=== PATIENT | female | born 1985 | race Caucasian/White ===

== ENCOUNTER 2016-07-30 21:24 | Inpatient (IN) | payer OTHER, MEDICAID ==
[2016-07-30] MEDS ORDERED: OXYTOCIN/NORMAL SALINE 1,000 ML IV PRN (21:43)
[2016-07-30] MEDS ORDERED: ACETAMINOPHEN 325 MG TABLET PO PRN (21:44)
[2016-07-30] MEDS ORDERED: MAG HYDROX/AL HYDROX/SIMETH SUSP 30 ML UDCUP PO PRN (21:44)
[2016-07-30] MEDS ORDERED: RINGERS SOLUTION,LACTATED 300 ML IV ONE (21:45)
--- NOTE | 2016-07-30 22:00 | L&D Flow Sheet ---
LD Flowsheet Datetime Report Generated by CPN: 07/30/2016 22:00 Datetime: 07/30/2016 21:50 Vital Signs NBP Sys/Flor/Mean (mmHg): 134 (QS system process) : 78 (QS system process) : 100 (QS system process) Pulse: 82 (QS system process)
[2016-07-30] MEDS ORDERED: OXYTOCIN/NORMAL SALINE 0 UNIT/0 ML RTUINJ ONE (22:11)
[2016-07-30] MEDS ORDERED: LIDOCAINE 1% INJ-PF (10 MG/ML) 30 ML SDV ONE (22:11)
[2016-07-30] MEDS ORDERED: OXYTOCIN 10 UNIT/ML VIAL ONE (22:11)
[2016-07-30] MEDS ORDERED: MISOPROSTOL 0.2 MG TABLET ONE (22:11)
[2016-07-30] MEDS ORDERED: MISOPROSTOL 0.1 MG TABLET PO ONE (22:32)
[2016-07-30 22:37] LABS: ABSOLUTE LYMPHOCYTES (AUTO) 2.6 10^3/uL (0.5-4.7); ABSOLUTE MONOCYTES (AUTO) 0.5 10^3/uL (0.1-1.4); ABSOLUTE NEUT (AUTO) 8.2 10^3/uL (1.7-8.2); BASOPHILS % (AUTO) 0.2 % (0-2); EOSINOPHILS % (AUTO) 0.3 % (0-6); HEMOGLOBIN 10.4 g/dL (12.0-15.5); HGB HCT DIFFERENCE 0.2; LYMPHOCYTES % (AUTO) 22.8 % (13-45); MEAN CORPUSCULAR HEMOGLOBIN 28.8 pg (27.0-33.4); MEAN CORPUSCULAR HGB CONC 33.5 g/dL (32.0-36.0); MEAN CORPUSCULAR VOLUME 86 fl (80-97); MONOCYTES % (AUTO) 4.7 % (3-13); RED BLOOD COUNT 3.61 10^6/uL (3.72-5.28); RED CELL DISTRIBUTION WIDTH 15.3 % (11.5-14.0); WHITE BLOOD COUNT 11.4 10^3/uL (4.0-10.5)
[2016-07-30] MEDS: RINGERS SOLUTION,LACTATED 1,000 ML IV PRN (22:37)
[2016-07-30 22:42] LABS: APPEARANCE,URINE SLIGHTLY-CLOUDY; BILIRUBIN,URINE NEGATIVE (NEGATIVE); GLUCOSE, URINE NEGATIVE (NEGATIVE); KETONES,URINE TRACE mg/dL (NEGATIVE); LEUKOCYTE ESTERASE,URINE MODERATE (NEGATIVE); NITRITE,URINE NEGATIVE (NEGATIVE); PROTEIN,URINE NEGATIVE (NEGATIVE); URINE SPECIFIC GRAVITY 1.014; UROBILINOGEN,URINE NEGATIVE mg/dL (<2.0)
[2016-07-30 22:57] LABS: URINE BARBITURATES SCREEN NEGATIVE; URINE METHADONE SCREEN NEGATIVE; URINE OPIATES LOW NEGATIVE; URINE PHENCYCLIDINE SCREEN NEGATIVE
[2016-07-31] MEDS ORDERED: MISOPROSTOL 0.1 MG TABLET ONE (04:51)
[2016-07-31] MEDS: RINGERS SOLUTION,LACTATED 1,000 ML IV PRN ×2 (04:58→09:14)
--- NOTE | 2016-07-31 08:00 | L&D Flow Sheet ---
LD Flowsheet Datetime Report Generated by CPN: 07/31/2016 08:00 Datetime: 07/31/2016 07:29 Monitor Mode: External (Gary Griffith RN) Frequency (min): Irritable (Gary Griffith RN) Resting Tone (Palpate): Relaxed (Gary Griffith RN) Monitor Mode: External US (Gary Griffith RN) FHR Baseline Rate : 130 (Gary Griffith RN) FHR Baseline Changes: No Baseline Change (Gary Griffith RN) Variability: Moderate 6-25 bpm (Gary Griffith RN) Accelerations: 15X15 (Gary Griffith RN) Decelerations: Variable (Gary Griffith RN) Comments: Variable resolved spontaneously (Gary Griffith RN) Pain Presence: None/Denies (Gary Griffith RN) IV/Blood Work: IV Infusing per Order (Gary Griffith RN) Patient Position/Activity: Left Lateral; Left Tilt (Gary Griffith RN) Comfort Measures: Family Support (Gary Griffith RN) LaborFlag: Labor (QS system process) Datetime: 07/31/2016 07:11 Communication: RN at Bedside (Annotations: Care was assumed from Shelly Gilda, RN. PT stable at this time and resting. Will continue to monitor. ) (Gary Griffith, RN) Datetime: 07/31/2016 07:10 Communication: Report Given to @ D Bellavance RNC (Shelly Gilda, RN) Datetime: 07/31/2016 07:00 Monitor Mode: External (Shelly Gilda, RN) Frequency (min): irregular (Shelly Gilda, RN) Quality: Mild (Shelly Gilda, RN) Duration (sec): 60-80 (Shelly Gilda, RN) Resting Tone (Palpate): Relaxed (Shelly Gilda, RN) Monitor Mode: External US (Shelly Gilda, RN) FHR Baseline Rate : 135 (Shelly Gilda, RN) Variability: Moderate 6-25 bpm (Shelly Gilda, RN) Accelerations: 15X15 (Shelly Gilda, RN) Decelerations: None (Shelly Gilda, RN) Datetime: 07/31/2016 06:45 Monitor Mode: External (Shelly Gilda, RN) Frequency (min): irritability/ irregular (Shelly Gilda, RN) Quality: Mild (Shelly Gilda, RN) Duration (sec): 40-60 (Shelly Gilda, RN) Resting Tone (Palpate): Relaxed (Shelly Gilda, RN) Monitor Mode: External US (Shelly Gilda, RN) FHR Baseline Rate : 135 (Shelly Gilda, RN) Variability: Moderate 6-25 bpm (Shelly Gilda, RN) Accelerations: 10X10 (Shelly Gilda, RN) Decelerations: None (Shelly Gilda, RN) Datetime: 07/31/2016 06:30 Monitor Mode: External (Shelly Gilda, RN) Frequency (min): Irregular/ irritability (Shelly Gilda, RN) Quality: Mild (Shelly Gilda, RN) Duration (sec): 40-60 (Shelly Gilda, RN) Resting Tone (Palpate): Relaxed (Shelly Gilda, RN) Monitor Mode: External US (Shelly Gilda, RN) FHR Baseline Rate : 135 (Shelly Gilda, RN) Variability: Moderate 6-25 bpm (Shelly Gilda, RN) Accelerations: 15X15 (Shelly Gilda, RN) Decelerations: None (Shelly Gilda, RN) Datetime: 07/31/2016 06:15 Monitor Mode: External (Shelly Gilda, RN) Frequency (min): 2-5 (Shelly Gilda, RN) Quality: Mild (Shelly Gilda, RN) Duration (sec): 50-120 (Shelly Gilda, RN) Resting Tone (Palpate): Relaxed (Shelly Gilda, RN) Monitor Mode: External US (Shelly Gilda, RN) FHR Baseline Rate : 135 (Shelly Gilda, RN) Variability: Moderate 6-25 bpm (Shelly Gilda, RN) Accelerations: 15X15 (Shelly Gilda, RN) Decelerations: None (Shelly Gilda, RN) Datetime: 07/31/2016 06:06 Communication: Report Given to @ Dr Santos (Shelly Gilda, RN) Communication Comments: Telephone report to Dr Santos re: cytotec administration, recent deceleration and subsequent recovery (Shelly Gilda, RN) Datetime: 07/31/2016 06:00 Monitor Mode: External (Shelly Gilda, RN) Frequency (min): 2-4 (Shelly Gilda, RN) Quality: Mild (Shelly Gilda, RN) Duration (sec): 50-70 (Shelly Gilda, RN) Resting Tone (Palpate): Relaxed (Shelly Gilda, RN) Monitor Mode: External US (Shelly Gilda, RN) FHR Baseline Rate : 135 (Shelly Gilda, RN) Variability: Moderate 6-25 bpm (Shelly Gilda, RN) Accelerations: 10X10 (Shelly Gilda, RN) Decelerations: Prolonged (Shelly Gilda, RN) Datetime: 07/31/2016 05:51 Patient Position/Activity: Left Extreme (Shelly Gilda, RN) Datetime: 07/31/2016 05:49 Actions for Decelerations: Hands and Knees; Oxygen Applied (Shelly Gilda, RN) Datetime: 07/31/2016 05:47 Monitor Interventions for FHR: Ultrasound Adjusted (Shelly Gilda, RN) Actions for Decelerations: Side to Side (Shelly Gilda, RN) Communication: RN at Bedside (Shelly Gilda, RN) Datetime: 07/31/2016 05:45 Monitor Mode: External (Shelly Gilda, RN) Frequency (min): 2-6 (Shelly Gilda, RN) Quality: Mild (Shelly Gilda, RN) Duration (sec): 60-90 (Shelly Gilda, RN) Resting Tone (Palpate): Relaxed (Shelly Gilda, RN) Monitor Mode: External US (Shelly Gilda, RN) FHR Baseline Rate : 120 (Shelly Gilda, RN) Variability: Moderate 6-25 bpm (Shelly Gilda, RN) Accelerations: 15X15 (Shelly Gilda, RN) Decelerations: None (Shelly Gilda, RN) Datetime: 07/31/2016 05:30 Monitor Mode: External (Shelly Gilda, RN) Frequency (min): 2-6 (Shelly Gilda, RN) Quality: Mild (Shelly Gilda, RN) Duration (sec): 50-100 (Shelly Gilda, RN) Resting Tone (Palpate): Relaxed (Shelly Gilda, RN) Monitor Mode: External US (Shelly Gilda, RN) FHR Baseline Rate : 120 (Shelly Gilda, RN) Variability: Moderate 6-25 bpm (Shelly Gilda, RN) Accelerations: 15X15 (Shelly Gilda, RN) Decelerations: None (Shelly Gilda, RN) Datetime: 07/31/2016 05:15 Monitor Mode: External (Shelly Gilda, RN) Frequency (min): 3-6 (Shelly Gilda, RN) Quality: Mild (Shelly Gilda, RN) Duration (sec): 50-90 (Shelly Gilda, RN) Resting Tone (Palpate): Relaxed (Shelly Gilda, RN) Monitor Mode: External US (Shelly Gilda, RN) FHR Baseline Rate : 125 (Shelly Gilda, RN) Variability: Moderate 6-25 bpm (Shelly Gilda, RN) Accelerations: 15X15 (Shelly Gilda, RN) Decelerations: None (Shelly Gilda, RN) Datetime: 07/31/2016 05:00 Monitor Mode: External (Shelly Gilda, RN) Frequency (min): 3-5 (Shelly Gilda, RN) Quality: Mild (Shelly Gilda, RN) Duration (sec): 50-80 (Shelly Gilda, RN) Resting Tone (Palpate): Relaxed (Shelly Gilda, RN) Monitor Mode: External US (Shelly Gilda, RN) FHR Baseline Rate : 130 (Shelly Gilda, RN) Variability: Moderate 6-25 bpm (Shelly Gilda, RN) Accelerations: 15X15 (Shelly Gilda, RN) Decelerations: None (Shelly Gilda, RN) Cervical Ripening Agents: Cytotec @ 50 mcg po; 25 mcg PV (Shelly Gilda, RN) Datetime: 07/31/2016 04:45 Monitor Mode: External (Shelly Gilda, RN) Frequency (min): 2-8 (Shelly Gilda, RN) Quality: Mild (Shelly Gilda, RN) Duration (sec): 60-80 (Shelly Gilda, RN) Resting Tone (Palpate): Relaxed (Shelly Gilda, RN) Monitor Mode: External US (Shelly Gilda, RN) FHR Baseline Rate : 125 (Shelly Gilda, RN) Variability: Moderate 6-25 bpm (Shelly Gilda, RN) Accelerations: 15X15 (Shelly Gilda, RN) Decelerations: None (Shelly Gilda, RN) Datetime: 07/31/2016 04:43 Dilatation (cm): 2.0 (Shelly Vo, RN) Effacement (%): 30 (Shelly Vo, RN) Station: -1 (Shelly Vo, RN) Exam by: Myrtle Vo RN (Shelly Vo, RN) Vaginal Exam Comments: outer os 3 cm (Shelly Vo RN) Pitocin (milliunit): Pitocin Discontinued (Shelly Vo, RN) Datetime: 07/31/2016 04:30 Monitor Mode: External (Shelly Gilda, RN) Frequency (min): 1.5-5 (Shelly Gilda, RN) Quality: Mild (Shelly Gilda, RN) Duration (sec): 50-100 (Shelly Gilda, RN) Resting Tone (Palpate): Relaxed (Shelly Gilda, RN) Monitor Mode: External US (Shelly Gilda, RN) FHR Baseline Rate : 130 (Shelly Gilda, RN) Variability: Moderate 6-25 bpm (Shelly Gilda, RN) Accelerations: 15X15 (Shelly Gilad, RN) Decelerations: None (Shelly Gilda, RN) Pitocin (milliunit): Pitocin Remains (milliunits) @ (Annotations: 20) (Shelly Gilda, RN) Datetime: 07/31/2016 04:15 Monitor Mode: External (Shelly Gilda, RN) Frequency (min): 2-4 (Shelly Gilda, RN) Quality: Mild (Shelly Gilda, RN) Duration (sec): 50-70 (Shelly Gilda, RN) Resting Tone (Palpate): Relaxed (Shelly Gilda, RN) Monitor Mode: External US (Shelly Gilda, RN) FHR Baseline Rate : 130 (Shelly Gilda, RN) Variability: Moderate 6-25 bpm (Shelly Gilda, RN) Accelerations: 15X15 (Shelly Gilda, RN) Decelerations: None (Shelly Gilda, RN) Pitocin (milliunit): Pitocin Remains (milliunits) @ (Annotations: 20) (Shelly Gilda, RN) Datetime: 07/31/2016 04:00 Monitor Mode: External (Shelly Gilda, RN) Frequency (min): 2-3.5 (Shelly Gilda, RN) Quality: Mild (Shelly Gilda, RN) Duration (sec): 40-70 (Shelly Gilda, RN) Resting Tone (Palpate): Relaxed (Shelly Gilda, RN) Monitor Mode: External US (Shelly Gilda, RN) FHR Baseline Rate : 130 (Shelly Gilda, RN) Variability: Moderate 6-25 bpm (Shelly Gilda, RN) Accelerations: 15X15 (Shelly Gilda, RN) Decelerations: None (Shelly Gilda, RN) Pitocin (milliunit): Pitocin Remains (milliunits) @ (Annotations: 20) (Shelly Gilda, RN) Datetime: 07/31/2016 03:45 Monitor Mode: External (Shelly Gilda, RN) Frequency (min): 2-4 (Shelly Gilda, RN) Quality: Mild (Shelly Gilda, RN) Duration (sec): 40-60 (Shelly Gilda, RN) Resting Tone (Palpate): Relaxed (Shelly Gilda, RN) Monitor Mode: External US (Shelly Gilda, RN) FHR Baseline Rate : 145 (Shelly Gilda, RN) Variability: Moderate 6-25 bpm (Shelly Gilda, RN) Accelerations: 15X15 (Shelly Gilda, RN) Decelerations: None (Shelly Gilda, RN) Pitocin (milliunit): Pitocin Remains (milliunits) @ (Annotations: 20) (Shelly Gilda, RN) Datetime: 07/31/2016 03:43 Pitocin (milliunit): Pitocin Increased to (milliunits) @ 20 (Shelly Gilda, RN) Datetime: 07/31/2016 03:30 Monitor Mode: External (Shelly Gilda, RN) Frequency (min): 2-3.5 (Shelly Gilda, RN) Quality: Mild (Shelly Gilda, RN) Duration (sec): 60-90 (Shelly Gilda, RN) Resting Tone (Palpate): Relaxed (Shelly Gilda, RN) Monitor Mode: External US (Shelly Gilda, RN) FHR Baseline Rate : 150 (Shelly Gilda, RN) Variability: Moderate 6-25 bpm (Shelly Gilda, RN) Accelerations: None (Shelly Gilda, RN) Decelerations: None (Shelly Gilda, RN) Pitocin (milliunit): Pitocin Remains (milliunits) @ (Annotations: 18) (Shelly Gilda, RN) Datetime: 07/31/2016 03:24 Pitocin (milliunit): Pitocin Increased to (milliunits) @ 18 (Shelly Gilda, RN) Datetime: 07/31/2016 03:15 Monitor Mode: External (Shelly Gilda, RN) Frequency (min): 2-5 (Shelly Gilda, RN) Quality: Mild (Shelly Gilda, RN) Duration (sec): 60-90 (Shelly Gilda, RN) Resting Tone (Palpate): Relaxed (Shelly Gilda, RN) Monitor Mode: External US (Shelly Gilda, RN) FHR Baseline Rate : 150 (Shelly Gilda, RN) Variability: Moderate 6-25 bpm (Shelly Gilda, RN) Accelerations: 10X10 (Shelly Gilda, RN) Decelerations: Variable (Shelly Gilda, RN) Pitocin (milliunit): Pitocin Remains (milliunits) @ (Annotations: 16) (Shelly Gilda, RN) Datetime: 07/31/2016 03:06 Pitocin (milliunit): Pitocin Increased to (milliunits) @ 16 (Shelly Gilda, RN) Datetime: 07/31/2016 03:00 Monitor Mode: External (Shelly Gilda, RN) Frequency (min): 2.5-3.5 (Shelly Gilda, RN) Quality: Mild (Shelly Gilda, RN) Duration (sec): 60-100 (Shelly Gilda, RN) Resting Tone (Palpate): Relaxed (Shelly Gilda, RN) Monitor Mode: External US (Shelly Gilda, RN) FHR Baseline Rate : 155 (Shelly Gilda, RN) Variability: Moderate 6-25 bpm (Shelly Gilda, RN) Accelerations: None (Shelly Gilda, RN) Decelerations: None (Shelly Gilda, RN) Pitocin (milliunit): Pitocin Remains (milliunits) @ (Annotations: 14) (Shelly Gilda, RN) Datetime: 07/31/2016 02:45 Monitor Mode: External (Shelly Gilda, RN) Frequency (min): 2-4 (Shelly Gilda, RN) Quality: Mild (Shelly Gilda, RN) Duration (sec): 60-90 (Shelly Gilda, RN) Resting Tone (Palpate): Relaxed (Shelly Gilda, RN) Monitor Mode: External US (Shelly Gilda, RN) FHR Baseline Rate : 145 (Shelly Gilda, RN) Variability: Moderate 6-25 bpm (Shelly Gilda, RN) Accelerations: Prolonged (Shelly Gilda, RN) Decelerations: None (Shelly Gilda, RN) Pitocin (milliunit): Pitocin Remains (milliunits) @ (Annotations: 14) (Shelly Gilda, RN) Datetime: 07/31/2016 02:43 Pitocin (milliunit): Pitocin Increased to (milliunits) @ 14 (Shelly Gilda, RN) Datetime: 07/31/2016 02:30 Monitor Mode: External (Shelly Vo RN) Quality: Mild (Shelly Vo RN) Resting Tone (Palpate): Relaxed (Shelly Vo RN) Contraction Comments: Unable to accurately assess; toco adjusted (Shelly Vo RN) Monitor Mode: External US (Shelly Vo RN) FHR Baseline Rate : 145 (Shelly Vo RN) Variability: Moderate 6-25 bpm (Shelly Vo RN) Accelerations: 15X15 (Shelly Vo RN) Decelerations: None (Shelly Vo RN) Pitocin (milliunit): Pitocin Remains (milliunits) @ (Annotations: 12) (Shelly Gilda, RN) Datetime: 07/31/2016 02:28 Monitor Interventions for UA: [place] Adjusted (Shelly Gilda, RN) Monitor Interventions for FHR: Ultrasound Adjusted (Shelly Gilda, RN) IV/Blood Work: IV Bolus Started; New IV Bag Hung; IV Bag Number @ 2 (Shelly Gilda, RN) Datetime: 07/31/2016 02:25 I/O Interventions: Up to BR (Shelly Gilda, RN) Datetime: 07/31/2016 02:15 Monitor Mode: External (Shelly Gilda, RN) Frequency (min): 5-6 (Shelly Gilda, RN) Quality: Mild (Shelly Gilda, RN) Duration (sec): 60-80 (Shelly Gilda, RN) Resting Tone (Palpate): Relaxed (Shelly Gilda, RN) Monitor Mode: External US (Shelly Gilda, RN) FHR Baseline Rate : 140 (Shelly Gilda, RN) Variability: Moderate 6-25 bpm (Shelly Gilda, RN) Accelerations: 15X15 (Shelly Gilda, RN) Decelerations: None (Shelly Gilda, RN) Pitocin (milliunit): Pitocin Remains (milliunits) @ (Annotations: 12) (Shelly Gilda, RN) Datetime: 07/31/2016 02:06 Pitocin (milliunit): Pitocin Increased to (milliunits) @ 12 (Shelly Gilda, RN) Datetime: 07/31/2016 02:00 Monitor Mode: External (Shelly Gilda, RN) Frequency (min): 3-4 (Shelly Gilda, RN) Quality: Mild (Shelly Gilda, RN) Duration (sec): 50-80 (Shelly Gilda, RN) Resting Tone (Palpate): Relaxed (Shelly Gilda, RN) Monitor Mode: External US (Shelly Gilda, RN) FHR Baseline Rate : 140 (Shelly Gilda, RN) Variability: Moderate 6-25 bpm (Shelly Gilda, RN) Accelerations: 15X15 (Shelly Gilda, RN) Decelerations: None (Shelly Gilda, RN) Pitocin (milliunit): Pitocin Remains (milliunits) @ (Annotations: 10) (Shelly Gilda, RN) Datetime: 07/31/2016 01:45 Monitor Mode: External (Shelly Gilda, RN) Frequency (min): 3-5 (Shelly Gilda, RN) Quality: Mild (Shelly Gilda, RN) Duration (sec): 60-70 (Shelly Gilda, RN) Resting Tone (Palpate): Relaxed (Shelly Gilda, RN) Monitor Mode: External US (Shelly Gilda, RN) FHR Baseline Rate : 135 (Shelly Gilda, RN) Variability: Moderate 6-25 bpm (Shelly Gilda, RN) Accelerations: 15X15 (Shelly Gilda, RN) Decelerations: None (Shelly Gilda, RN) Pitocin (milliunit): Pitocin Remains (milliunits) @ (Annotations: 10) (Shelly Gilda, RN) Datetime: 07/31/2016 01:30 Monitor Mode: External (Shelly Gilda, RN) Frequency (min): 2-4 (Shelly Gilda, RN) Quality: Mild (Shelly Gilda, RN) Duration (sec): 90-100 (Shelly Gilda, RN) Resting Tone (Palpate): Relaxed (Shelly Gilda, RN) Monitor Mode: External US (Shelly Gilda, RN) FHR Baseline Rate : 130 (Shelly Gilda, RN) Variability: Moderate 6-25 bpm (Shelly Gilda, RN) Accelerations: 15X15 (Shelly Gilda, RN) Decelerations: None (Shelly Gilda, RN) Pitocin (milliunit): Pitocin Increased to (milliunits) @ 10 (Shelly Gilda, RN) Datetime: 07/31/2016 01:28 Monitor Interventions for UA: [place] Adjusted (Shelly Gilda, RN) Monitor Interventions for FHR: Ultrasound Adjusted (Shelly Gilda, RN) Datetime: 07/31/2016 01:15 Monitor Mode: External (Shelly Gilda, RN) Frequency (min): 2-5 (Shelly Gilda, RN) Quality: Mild (Shelly Gilda, RN) Duration (sec): 50-60 (Shelly Gilda, RN) Resting Tone (Palpate): Relaxed (Shelly Gilda, RN) Monitor Mode: External US (Shelly Gilda, RN) FHR Baseline Rate : 135 (Shelly Gilda, RN) Variability: Moderate 6-25 bpm (Shelly Gilda, RN) Accelerations: 15X15 (Shelly Gilda, RN) Decelerations: None (Shelly Gilda, RN) Datetime: 07/31/2016 01:00 Monitor Mode: External (Shelly Gilda, RN) Frequency (min): 4-5 (Shelly Gilda, RN) Quality: Mild (Shelly Gilda, RN) Duration (sec): 50-70 (Shelly Gilda, RN) Resting Tone (Palpate): Relaxed (Shelly Gilda, RN) Monitor Mode: External US (Shelly Gilda, RN) FHR Baseline Rate : 135 (Shelly Gilda, RN) Variability: Moderate 6-25 bpm (Shelly Gilda, RN) Accelerations: 15X15 (Shelly Gilda, RN) Decelerations: None (Shelly Gilda, RN) Pitocin (milliunit): Pitocin Remains (milliunits) @ 8 (Shelly Gilda, RN) Datetime: 07/31/2016 00:45 Monitor Mode: External (Shelly Gilda, RN) Frequency (min): 3-5 (Shelly Gilda, RN) Quality: Mild (Shelly Gilda, RN) Duration (sec): 50-80 (Shelly Gilda, RN) Resting Tone (Palpate): Relaxed (Shelly Gilda, RN) Monitor Mode: External US (Shelly Gilda, RN) FHR Baseline Rate : 130 (Shelly Gilda, RN) Variability: Moderate 6-25 bpm (Shelly Gilda, RN) Accelerations: 15X15 (Shelly Gilda, RN) Decelerations: None (Shelly Gilda, RN) Pitocin (milliunit): Pitocin Increased to (milliunits) @ 8 (Shelly Gilda, RN) Datetime: 07/31/2016 00:30 Monitor Mode: External (Shelly Gilda, RN) Frequency (min): 3-5 (Shelly Gilda, RN) Quality: Mild (Shelly Gilda, RN) Duration (sec): 50-90 (Shelly Gilda, RN) Resting Tone (Palpate): Relaxed (Shelly Gilda, RN) Monitor Mode: External US (Shelly Gilda, RN) FHR Baseline Rate : 135 (Shelly Gilda, RN) Variability: Moderate 6-25 bpm (Shelly Gilda, RN) Accelerations: 15X15 (Shelly Gilda, RN) Decelerations: None (Shelly Gilda, RN) Pitocin (milliunit): Pitocin Remains (milliunits) @ 6 (Shelly Gilda, RN) Datetime: 07/31/2016 00:19 I/O Interventions: Up to BR (Shelly Gilda, RN) Datetime: 07/31/2016 00:15 Monitor Mode: External (Shelly Gilda, RN) Frequency (min): x2 (Shelly Gilda, RN) Quality: Mild (Shelly Gilda, RN) Duration (sec): 50-90 (Shelly Gilda, RN) Resting Tone (Palpate): Relaxed (Shelly Gilda, RN) Monitor Mode: External US (Shelly Gilda, RN) FHR Baseline Rate : 130 (Shelly Gilda, RN) Variability: Moderate 6-25 bpm (Shelly Gilda, RN) Accelerations: 15X15 (Shelly Gilda, RN) Decelerations: None (Shelly Gilda, RN) Pitocin (milliunit): Pitocin Increased to (milliunits) @ 6 (Shelly Gilda, RN) Datetime: 07/31/2016 00:00 Monitor Mode: External (Shelly Gilda, RN) Frequency (min): 3-4 (Shelly Gilda, RN) Quality: Mild (Shelly Gilda, RN) Duration (sec): 40-90 (Shelly Gilda, RN) Resting Tone (Palpate): Relaxed (Shelly Gilda, RN) Monitor Mode: External US (Shelly Gilda, RN) FHR Baseline Rate : 125 (Shelly Gilda, RN) Variability: Moderate 6-25 bpm (Shelly Gilda, RN) Accelerations: 15X15 (Shelly Gilda, RN) Decelerations: None (Shelly Gilda, RN) Pitocin (milliunit): Pitocin Remains (milliunits) @ 4 (Shelly Gilda, RN) Datetime: 07/30/2016 23:45 Monitor Mode: External (Shelly Gilda, RN) Frequency (min): 3-5 (Shelly Gilda, RN) Quality: Mild (Shelly Gilda, RN) Duration (sec): 60-80 (Shelly Gilda, RN) Resting Tone (Palpate): Relaxed (Shelly Gilda, RN) Monitor Mode: External US (Shelly Gilda, RN) FHR Baseline Rate : 125 (Shelly Gilda, RN) Variability: Moderate 6-25 bpm (Shelly Gilda, RN) Accelerations: 15X15 (Shelly Gilda, RN) Decelerations: None (Shelly Gilda, RN) Pitocin (milliunit): Pitocin Increased to (milliunits) @ 4 (Shelly Vo RN) Datetime: 07/30/2016 23:30 Monitor Mode: External (Shelly Vo RN) Frequency (min): 2-3 (Shelly Vo RN) Quality: Mild (Shelly Vo RN) Duration (sec): 60-80 (Shelly Vo RN) Resting Tone (Palpate): Relaxed (Shelly Vo RN) Monitor Mode: External US (Shelly Vo RN) FHR Baseline Rate : 125 (Shelly Vo RN) Variability: Moderate 6-25 bpm (Shelly Vo RN) Accelerations: None (Shelly Vo RN) Decelerations: None (Shelly Vo RN) Pitocin (milliunit): Pitocin Remains (milliunits) @ 2 (Shelly Vo RN) Provider Reviewed Strip: Yes (Shelly Vo RN) Communication: Provider Orders Received (Shelly Vo RN) Communication Comments: Dr Santos on unit, orders for cytotec 25 mcg PV and 50 mcg PO if no cervical change by _0300 (Shelly Vo RN) Datetime: 07/30/2016 23:15 Monitor Mode: External (Shelly Gilda, RN) Frequency (min): 3 (Shelly Gilda, RN) Quality: Mild (Shelly Gilda, RN) Duration (sec): 60-100 (Shelly Gilda, RN) Resting Tone (Palpate): Relaxed (Shelly Gilda, RN) Monitor Mode: External US (Shelly Gilda, RN) FHR Baseline Rate : 135 (Shelly Gilda, RN) Variability: Moderate 6-25 bpm (Shelly Gilda, RN) Accelerations: 15X15 (Shelly Gilda, RN) Decelerations: None (Shelly Gilda, RN) Pitocin (milliunit): Pitocin Remains (milliunits) @ 2 (Shelly Gilda, RN) Datetime: 07/30/2016 23:08 I/O Interventions: Up to BR (Shelly Gilda, RN) Datetime: 07/30/2016 23:00 Monitor Mode: External (Shelly Gilda, RN) Frequency (min): 3-4 (Shelly Gilda, RN) Quality: Mild (Shelly Gilda, RN) Duration (sec): 60-70 (Shelly Gilda, RN) Resting Tone (Palpate): Relaxed (Shelly Gilda, RN) Monitor Mode: External US (Shelly Gilda, RN) FHR Baseline Rate : 140 (Shelly Gilda, RN) Variability: Moderate 6-25 bpm (Shelly Gilda, RN) Accelerations: 15X15 (Shelly Gilda, RN) Decelerations: Variable (Shelly Gilda, RN) Pitocin (milliunit): Pitocin Remains (milliunits) @ 2 (Shelly Gilda, RN) Datetime: 07/30/2016 22:45 Monitor Mode: External (Shelly Gilda, RN) Frequency (min): 2-5 (Shelly Gilda, RN) Quality: Mild (Shelly Gilda, RN) Duration (sec): 50-80 (Shelly Gilda, RN) Resting Tone (Palpate): Relaxed (Shelly Gilda, RN) Monitor Mode: External US (Shelly Gilda, RN) FHR Baseline Rate : 135 (Shelly Gilda, RN) Variability: Moderate 6-25 bpm (Shelly Gilda, RN) Accelerations: 15X15 (Shelly Gilda, RN) Decelerations: None (Shelly Mohanl, RN) Pitocin (milliunit): Pitocin Remains (milliunits) @ 2 (Shelly Gilda, RN) Datetime: 07/30/2016 22:37 Pitocin (milliunit): Pitocin Started (milliunits) @ 2 (Shelly Gilda, RN) Datetime: 07/30/2016 22:32 Communication: Call/Page Placed to Provider; Report Given to @ DR Santos (Shelly Vo RN) Communication Comments: Call placed to Dr Santos re: pt SVE and patino score. ORders to continue with pitocin administration as ordered (Shelly Lowerysel, RN) Datetime: 07/30/2016 22:30 Monitor Mode: External (Shelly Gilda, RN) Frequency (min): 3-7 (Shelly Gilda, RN) Quality: Mild (Shelly Gilda, RN) Duration (sec): 60-120 (Shelly Gilda, RN) Resting Tone (Palpate): Relaxed (Shelly Gilda, RN) Monitor Mode: External US (Shelly Gilda, RN) FHR Baseline Rate : 135 (Shelly Gilda, RN) Variability: Moderate 6-25 bpm (Shelly Gilda, RN) Accelerations: 15X15 (Shelly Gilda, RN) Decelerations: None (Shelly Gilda, RN) Dilatation (cm): 2.0 (Shelly Gilda, RN) Effacement (%): 20 (Shelly Gilda, RN) Station: -2 (Shelly Vo, RN) Exam by: Myrtle Vo RN (Shellyflorin Vo, RN) Vaginal Bleeding: None (Shellyflorin Vo, RN) Cervix, Consistency: Soft (Shelly Vo, RN) Cervix, Position: Midposition (Shelly Gilda, RN) Dilatation (cm): 1-2 cm (Shelly Gilda, RN) Effacement: 0-30_ effaced (Shelly Gilda, RN) Station: minus 2 (Shelly Vo, RN) Consistency: Soft (Shelly Gilda, RN) Position: Midposition (Shelly Gilda, RN) Total Patino's Score: 5 (QS system process) : 5-8 = Small percentage of induction failure (QS system process) Datetime: 07/30/2016 22:25 Procedures: Labs Drawn (Shelly Gilda, RN) Datetime: 07/30/2016 22:15 Monitor Mode: External (Shelly Gilda, RN) Frequency (min): x2 (Shelly Gilda, RN) Quality: Mild (Shelly Gilda, RN) Duration (sec): 60-80 (Shelly Gilda, RN) Resting Tone (Palpate): Relaxed (Shelly Gilda, RN) Monitor Mode: External US (Shelly Gilda, RN) FHR Baseline Rate : 135 (Shelly Gilda, RN) Variability: Moderate 6-25 bpm (Shelly Gilda, RN) Accelerations: 15X15 (Shelly Gilda, RN) Decelerations: None (Shelly Gilda, RN) Datetime: 07/30/2016 22:10 Procedures: Consents Signed (Shelly Gilda, RN) Unit Routine: Photography (Shelly Gilda, RN) Datetime: 07/30/2016 22:01 IV/Blood Work: IV Started; IV Bolus Started; IV Bolus Given ml @ 300 (Shelly Gilda, RN) Datetime: 07/30/2016 22:00 Monitor Mode: External (Shelly Gilda, RN) Frequency (min): x1 (Shelly Gilda, RN) Quality: Mild (Shelly Gilda, RN) Quality: abd soft to palpation (Shelly Gilda, RN) Duration (sec): 120 (Shelly Gilda, RN) Resting Tone (Palpate): Relaxed (Shelly Gilda, RN) Monitor Mode: External US (Shelly Gilda, RN) FHR Baseline Rate : 140 (Shelly Vo RN) Variability: Moderate 6-25 bpm (Shelly Vo RN) Accelerations: 15X15 (Shelly Vo RN) Decelerations: None (Shelly Vo RN) Pain Presence: None/Denies (Shelly Vo RN) Membrane Status: Intact (Shelly Vo RN) Vaginal Bleeding: None (Shelly Vo RN) Level of Consciousness: Fully Conscious (Shelly Vo RN) DTR's/Clonus: DTRs 2+; No Clonus (Shelly Vo RN) Headache: Denies (Shelly Vo RN) Breath Sounds, Left: Clear and Equal (Shelly Vo RN) Breath Sounds, Right: Clear and Equal (Shelly Vo RN) Nausea/Vomiting: Denies (Shelly Vo RN) RUQ Epigastric Pain: Denies (Shelly Vo RN) Patient Position/Activity: Right Tilt (Shelly Vo RN) Comfort Measures: Family Support (Shelly Vo RN) Instructional Method: Verbal; Patient Instructed; Family/Support Person Instructed; Verbalized Understanding (Shelly Vo RN) Plan of Care: Plan of Care Discussed; Vaginal Delivery; Induction (Shelly Vo RN) Unit Routine: [place] to Room; Call [place]; Bed; Unit Personnel; Flu/Illness Precautions; Monitoring; Bathroom Privileges (Shelly Vo RN) LaborFlag: Labor (QS system process)
--- NOTE | 2016-07-31 09:40 | L&D Progress Notes ---
PROGRESS NOTES Datetime Report Generated by CPN: 07/31/2016 09:40 PROGRESS NOTE Procedures: Artificial ROM Plan: Continue Present Management; Augmentation Informed Consent Obtained: Vaginal Delivery; Risks, Benefits and Alternatives Discussed Vital Signs : Reviewed Comment: 30 yo admitted for IOL- GDM EDC 08/06/2016 EGA 39.1 GDM abdomen nontender EFW 8.5 lbs FHTs reactive ctxs 3-5 minute initiate pitocin per protocol AROM clear clear fluid random blood sugar 142- asymptomatic anticipate pain management prn VAGINAL EXAM Dilatation: 2 Effacement: 25 Station: -2 MEMBRANES Pooling: Negative Membranes: Ruptured Membranes: Intact FETUS A FHR - Baseline: 120 Monitoring: External US Variability: Moderate 6-25bpm : 39.0 Estimated Weight (gm): 4000 Presentation: Vertex SIGNATURE SIGNATURE: [id number] Assignment: Carmen Rothman MD Signature: with User ID: [email or web address] : with User ID: [email or web address]
--- NOTE | 2016-07-31 10:00 | L&D Flow Sheet ---
LD Flowsheet Datetime Report Generated by CPN: 07/31/2016 10:00 Datetime: 07/31/2016 09:58 NBP Sys/Flor/Mean (mmHg): 128 (QS system process) : 78 (QS system process) : 97 (QS system process) Pulse: 82 (QS system process) LaborFlag: Labor (QS system process) Datetime: 07/31/2016 09:30 Bedside Blood Glucose: 142 H (QS system process) LaborFlag: Labor (QS system process) Datetime: 07/31/2016 09:15 Frequency (min): 3-7 (Gary Nacho, RN) Monitor Mode: External US (Gary Nacho, RN) FHR Baseline Rate : 135 (Gary Nacho, RN) FHR Baseline Changes: No Baseline Change (Gary Nacho, RN) Variability: Moderate 6-25 bpm (Gary Nacho, RN) Accelerations: 15X15 (Gary Nahco, RN) Decelerations: None (Gary Nacho, RN) Datetime: 07/31/2016 09:00 Respirations: 16 (Gary Nacho, RN) Temperature (F): 98.1 (Gary Nacho, RN) Temperature (C): 36.7 (QS system process) Monitor Mode: External (Gary Nacho, RN) Frequency (min): 1.5-4 (Gary Nacho, RN) Quality: Mild (Gary Nacho, RN) Duration (sec): 80-270 (Gary Nacho, RN) Resting Tone (Palpate): Relaxed (Gary Griffith, RN) Monitor Mode: External US (Gary Griffith RN) FHR Baseline Rate : 130 (Gary Griffith RN) FHR Baseline Changes: No Baseline Change (Gary Griffith RN) Variability: Moderate 6-25 bpm (Gary Griffith RN) Accelerations: 15X15 (Gary Griffith RN) Decelerations: None (Gary Griffith RN) Dilatation (cm): 4.0 (Gary Griffith RN) Effacement (%): 25 (Gary Griffith RN) Station: -2 (Gary Griffith RN) Exam by: Gregory Hurtado CNM (Gary Griffith RN) Membrane Status: Ruptured (Gary Griffith RN) Membranes Ruptured Date/Time: 07/31/2016 09:00 (Gary Griffith RN) Membranes Rupture Method: Artificial (Gary Griffith RN) Amniotic Fluid Color: Clear (Gary Griffith RN) Amniotic Fluid Amount: Moderate (Gary Griffith RN) Amniotic Fluid Odor: Normal (Gary Griffith RN) Vaginal Bleeding: None (Gary Griffith RN) Level of Consciousness: Fully Conscious (Gary Griffith RN) Headache: Denies (Gary Griffith RN) Breath Sounds, Left: Clear and Equal (aGry Griffith RN) Breath Sounds, Right: Clear and Equal (Gary Griffith RN) Nausea/Vomiting: Denies (Gary Griffith RN) RUQ Epigastric Pain: Denies (Gary Griffith RN) IV/Blood Work: New IV Bag Hung (Gary Griffith RN) LaborFlag: Labor (QS system process) Datetime: 07/31/2016 08:31 Monitor Mode: External (Gary Griffith RN) Frequency (min): 6+ (Gary Griffith RN) Quality: Mild (Gary Griffith RN) Duration (sec): 90-240 (Gary Griffith RN) Resting Tone (Palpate): Relaxed (Gary Griffith RN) Monitor Mode: External US (Gary Griffith RN) FHR Baseline Rate : 135 (Gary Griffith RN) FHR Baseline Changes: No Baseline Change (Gary Griffith RN) Variability: Moderate 6-25 bpm (Gary Griffith RN) Accelerations: None (Gary Griffith RN) Decelerations: None (Gary Griffith RN) Pain Presence: None/Denies (Gary Griffith RN) Pain Type: N/A (Gary Griffith RN) IV/Blood Work: IV Infusing per Order (Gary Griffith RN) LaborFlag: Labor (QS system process)
[2016-07-31] MEDS ORDERED: MISOPROSTOL 0.2 MG TABLET ONE (11:59)
[2016-07-31] MEDS ORDERED: LIDOCAINE 1% INJ-PF (10 MG/ML) 30 ML SDV ONE (11:59)
[2016-07-31] MEDS ORDERED: OXYTOCIN/NORMAL SALINE 20 UNIT/1,000 ML RTUINJ ONE (12:00)
--- NOTE | 2016-07-31 12:00 | L&D Flow Sheet ---
LD Flowsheet Datetime Report Generated by CPN: 07/31/2016 12:00 Datetime: 07/31/2016 11:45 Pitocin (milliunit): Pitocin Increased to (milliunits) @ 14 ([facility], ) Datetime: 07/31/2016 11:32 NBP Sys/Flor/Mean (mmHg): 84 (QS system process) : 35 (QS system process) : 51 (QS system process) Pulse: 110 (QS system process) LaborFlag: Labor (QS system process) Datetime: 07/31/2016 11:29 Monitor Mode: External (Gary Nacho, RN) Monitor Mode: External US (Gary Nacho, RN) FHR Baseline Rate : 140 (Gary Nacho, RN) Variability: Moderate 6-25 bpm (Gary Nacho, RN) Accelerations: 15X15 (Gary Nacho, RN) Decelerations: None (Gary Nacho, RN) Pitocin (milliunit): Pitocin Increased to (milliunits) @ 12 (Gary Nacho, RN) Datetime: 07/31/2016 11:27 Temperature (F): 97.7 (Gary Nacho, RN) Temperature (C): 36.5 (QS system process) Monitor Mode: External (Janey Bellavance, RNC) Frequency (min): 1-6 (Janey Bellavance, RNC) Quality: Moderate (Janey Bellavance, RNC) Duration (sec): 50-400 (Janey Bellavance, RNC) Pattern: Normal: <= 5 Contractions in 10 Minutes (Janey Bellavance, RNC) Resting Tone (Palpate): Relaxed (Janey Bellavance, RNC) Monitor Mode: External US (Janey Bellavance, RNC) FHR Baseline Rate : 140 (Janey Bellavance, RNC) Variability: Moderate 6-25 bpm (Janey Bellavance, RNC) Accelerations: 15X15 (Janey Bellavance, RNC) Decelerations: None (Janey Bellavance, RNC) Pain Presence: Intermittent (Gary Griffith RN) Pain Type: Contraction (Gary Griffith RN) Pain Location: Abdomen; Back (Gary Griffith RN) Pain Relief Measures: Comfort Measures (Gary Griffith RN) IV/Blood Work: IV Infusing per Order (Gary Griffith RN) IV/Blood Work: IV Infusing per Order (Janey Field RNC) Patient Position/Activity: Birthing Ball (Gary Griffith RN) Comfort Measures: Breathing/Relaxation (Gary Griffith RN) LaborFlag: Labor (QS system process) Datetime: 07/31/2016 11:15 Monitor Mode: External (Janey Bellavance, RNC) Frequency (min): 1-3.5 (Janey Bellavance, RNC) Quality: Moderate (Janey Bellavance, RNC) Duration (sec): 50-90 (Janey Bellavance, RNC) Resting Tone (Palpate): Relaxed (Janey Bellavance, RNC) Monitor Mode: External US (Janey Bellavance, RNC) FHR Baseline Rate : 150 (Janey Bellavance, RNC) Variability: Moderate 6-25 bpm (Janey Bellavance, RNC) Accelerations: 15X15 (Janey Bellavance, RNC) Decelerations: None (Janey Bellavance, RNC) Pitocin (milliunit): Pitocin Increased to (milliunits) @ 10 (Janey Bellavance, RNC) IV/Blood Work: IV Infusing per Order (Janey Bellavance, RNC) Datetime: 07/31/2016 11:06 Pain Scale: 5 (Janey Bellavance, RNC) Pain Presence: Intermittent (Janey Bellavance, RNC) Pain Type: Cramping; Contraction (Janey Bellavance, RNC) Pain Location: Abdomen; Back (Janey Bellavance, RNC) Pain Goal: 2 (Janey Bellavance, RNC) Pain Relief Measures: Comfort Measures (Janey Bellavance, RNC) Pain Coping: Breathing Through Contractions (Janey Bellavance, RNC) Pain Assessment Comments: patient declines interventions (Janey Bellavance, RNC) Comfort Measures: Breathing/Relaxation; Family Support (Janey Bellavance, RNC) LaborFlag: Labor (QS system process) Datetime: 07/31/2016 11:05 NBP Sys/Flor/Mean (mmHg): 81 (QS system process) : 35 (QS system process) : 50 (QS system process) Pulse: 111 (QS system process) LaborFlag: Labor (QS system process) Datetime: 07/31/2016 11:04 NBP Sys/Flor/Mean (mmHg): 78 (QS system process) : 30 (QS system process) : 44 (QS system process) Pulse: 110 (QS system process) LaborFlag: Labor (QS system process) Datetime: 07/31/2016 11:00 Monitor Mode: External (Janey Bellavance, RNC) Frequency (min): 1-3.5 (Janey Bellavance, RNC) Quality: Moderate (Janey Bellavance, RNC) Duration (sec): 50-90 (Janey Bellavance, RNC) Resting Tone (Palpate): Relaxed (Janey Bellavance, RNC) Monitor Mode: External US (Janey Bellavance, RNC) FHR Baseline Rate : 150 (Janey Bellavance, RNC) Variability: Moderate 6-25 bpm (Janey Bellavance, RNC) Accelerations: 15X15 (Janey Bellavance, RNC) Decelerations: None (Janey Bellavance, RNC) Pitocin (milliunit): Pitocin Increased to (milliunits) @ 10 (Gary Griffith RN) IV/Blood Work: IV Infusing per Order (Janey Bellavance, RNC) Datetime: 07/31/2016 10:56 Monitor Mode: External US (Gary Griffith, AMBER) FHR Baseline Rate : 140 (Gary Griffith RN) Variability: Moderate 6-25 bpm (Gary Griffith, AMBER) Accelerations: 15X15 (Gary Griffith, RN) Decelerations: None (Gary Griffith RN) Pain Scale: 5 (Gary Griffith RN) Pain Presence: Intermittent (Gary Griffith RN) Pain Assessment Comments: PT states pain goes from lower abdomen around to back during contractions (Gary Griffith RN) Comfort Measures: Breathing/Relaxation; Family Support (Gary Griffith RN) LaborFlag: Labor (QS system process) Datetime: 07/31/2016 10:55 I/O Interventions: Up to BR (Gary Griffith RN) Datetime: 07/31/2016 10:45 Monitor Mode: External (Janey Bellavance, RNC) Frequency (min): 2-3 (Janey Bellavance, RNC) Quality: Moderate (Janey Bellavance, RNC) Duration (sec): 50-60 (Janey Bellavance, RNC) Resting Tone (Palpate): Relaxed (Janey Bellavance, RNC) Monitor Mode: External US (Janey Bellavance, RNC) Monitor Interventions for FHR: Ultrasound Adjusted (Janey Bellavance, RNC) FHR Baseline Rate : 140 (Janey Bellavance, RNC) Variability: Moderate 6-25 bpm (Janey Bellavance, RNC) Accelerations: 15X15 (Janey Bellavance, RNC) Decelerations: None (Janey Bellavance, RNC) Pain Coping: Breathing Through Contractions (Janey Bellmarye, RNC) Pitocin (milliunit): Pitocin Increased to (milliunits) @ (Annotations: Pitocin increased to 8 ) (Gary Griffith RN) IV/Blood Work: IV Infusing per Order (Janey Bellavance, RNC) Comfort Measures: Family Support (Janey Bellavance, RNC) Datetime: 07/31/2016 10:39 NBP Sys/Flor/Mean (mmHg): 125 (QS system process) : 78 (QS system process) : 97 (QS system process) Pulse: 78 (QS system process) LaborFlag: Labor (QS system process) Datetime: 07/31/2016 10:30 Pitocin (milliunit): Pitocin Increased to (milliunits) @ (Annotations: Pitocin increased to 6 ) (Gary Nacho, RN) Datetime: 07/31/2016 10:26 Temperature (F): 99.6 (Gary Griffith RN) Temperature (C): 37.6 (QS system process) LaborFlag: Labor (QS system process) Datetime: 07/31/2016 10:13 Monitor Mode: External (Gary Griffith RN) Frequency (min): 3-5 (Gary Griffith RN) Quality: Moderate (Gary Griffith RN) Duration (sec): 50-70 (Gary Griffith RN) Resting Tone (Palpate): Relaxed (Gary Griffith RN) Monitor Mode: External US (Gary Griffith RN) FHR Baseline Rate : 140 (Gary Griffith RN) Variability: Moderate 6-25 bpm (Gary Griffith RN) Accelerations: None (Gary Griffith RN) Decelerations: None (Gary Griffith RN) I/O Interventions: Up to BR (Gary Griffith RN)
--- NOTE | 2016-07-31 14:00 | L&D Flow Sheet ---
LD Flowsheet Datetime Report Generated by CPN: 07/31/2016 14:00 Datetime: 07/31/2016 13:38 NBP Sys/Flor/Mean (mmHg): 109 (QS system process) : 62 (QS system process) : 81 (QS system process) Pulse: 71 (QS system process) Datetime: 07/31/2016 13:35 Temperature (F): 98.7 (Gary Griffith RN) Temperature (C): 37.1 (QS system process) Pain Scale: 1 (Gary Nacho, RN) Pain Presence: Constant (Gary Griffith, RN) Pain Type: Aching (Gary Edouardford, RN) Pain Location: Perineum (Gary Edouardford, RN) Pain Goal: 0 (Gary Griffith, RN) Datetime: 07/31/2016 13:17 NBP Sys/Flor/Mean (mmHg): 140 (QS system process) : 62 (QS system process) : 89 (QS system process) Pulse: 75 (QS system process) Datetime: 07/31/2016 13:15 Stage of : Recovery (Gary Griffith, AMBER) Datetime: 07/31/2016 12:51 IV/Blood Work: IV Infusing per Order (Gary Griffith RN) Patient Position/Activity: Standing (Gary Griffith RN) I/O Interventions: Ice Chips Given (Gary Griffith RN) Datetime: 07/31/2016 12:45 Dilatation (cm): 6.0 (Gary Griffith RN) Effacement (%): 75 (Gary Griffith, AMBER) Station: -2 (Gary Griffith RN) Exam by: Katerina Field RN (Gary Griffith RN) Vaginal Bleeding: None (Gary Griffith RN) Datetime: 07/31/2016 12:36 NBP Sys/Flor/Mean (mmHg): 143 (QS system process) : 67 (QS system process) : 96 (QS system process) Pulse: 73 (QS system process) LaborFlag: Labor (QS system process) Datetime: 07/31/2016 12:30 Monitor Mode: External (Janey Bellavance, RNC) Frequency (min): 2-4 (Janey Bellavance, RNC) Quality: Moderate (Janey Bellavance, RNC) Duration (sec): 50-70 (Janey Bellavance, RNC) Resting Tone (Palpate): Relaxed (Janey Bellavance, RNC) Monitor Mode: External US (Janey Bellavance, RNC) FHR Baseline Rate : 145 (Janey Bellavance, RNC) Variability: Moderate 6-25 bpm (Janey Bellavance, RNC) Accelerations: None (Janey Bellavance, RNC) Decelerations: Early; Late (Janey Bellavance, RNC) Pain Presence: Intermittent (Gary Griffith, AMBER) Pain Type: Contraction (Gary Griffith, RN) Pitocin (milliunit): Pitocin Remains (milliunits) @ 14 (Gary Griffith, RN) IV/Blood Work: IV Infusing per Order (Janey Field RNC) IV/Blood Work: IV Infusing per Order (Gary Griffith, RN) Patient Position/Activity: Right Tilt; Semi-Fowlers (Gary Griffith, RN) Patient Position/Activity: Semi-Fowlers (Janey Field RNFrank) Patient Position/Activity: Semi-Fowlers (Gary Griffith, RN) Comfort Measures: Breathing/Relaxation; Family Support (Gary Griffith, AMBER) LaborFlag: Labor (QS system process) Datetime: 07/31/2016 12:15 Monitor Mode: External (Janey Bellavance, RNC) Frequency (min): 1-3 (Janey Bellavance, RNC) Quality: Moderate (Janey Bellavance, RNC) Duration (sec): 50-70 (Janey Bellavance, RNC) Resting Tone (Palpate): Relaxed (Janey Bellavance, RNC) Monitor Mode: External US (Janey Bellavance, RNC) Monitor Mode: External US (Gary Griffith, RN) FHR Baseline Rate : 145 (Janey Bellavance, RNC) FHR Baseline Rate : 150 (Gary Nacho, RN) Variability: Moderate 6-25 bpm (Janey Bellavance, RNC) Variability: Moderate 6-25 bpm (Gary Nacho, RN) Accelerations: 10X10 (Janey Bellavance, RNC) Decelerations: Variable (Janey Bellavance, RNC) Pitocin (milliunit): Pitocin Remains (milliunits) @ 14 (Janey Bellavance, RNC) IV/Blood Work: IV Infusing per Order (Janey Bellavance, RNC) Datetime: 07/31/2016 12:05 NBP Sys/Flor/Mean (mmHg): 123 (QS system process) : 83 (QS system process) : 92 (QS system process) Pulse: 106 (QS system process) LaborFlag: Labor (QS system process) Datetime: 07/31/2016 12:00 Monitor Mode: External (Janey Bellavance, RNC) Frequency (min): 2-3 (Janey Bellavance, RNC) Quality: Moderate (Janey Bellavance, RNC) Duration (sec): 50-100 (Janey Bellavance, RNC) Resting Tone (Palpate): Relaxed (Janey Bellavance, RNC) Monitor Mode: External US (Janey Bellavance, RNC) FHR Baseline Rate : 140 (Janey Cummingse, RNC) FHR Baseline Rate : 140 (Gray Griffith RN) Variability: Moderate 6-25 bpm (Janey Bellavance, RNC) Accelerations: None (Janey Bellavance, RNC) Decelerations: Early; Variable (Janey Bellavance, RNC) Pain Assessment Comments: requesting natural (VONDA Bowles) Pitocin (milliunit): Pitocin Remains (milliunits) @ 14 (Gary Griffith, AMBER) IV/Blood Work: IV Infusing per Order (VONDA Bowles) IV/Blood Work: IV Infusing per Order (Gary Griffith RN) Patient Position/Activity: High Fowlers (Janey Bellavance, RNC) Patient Position/Activity: Birthing Ball (Gary Griffith RN) LaborFlag: Labor (QS system process)
--- NOTE | 2016-07-31 15:36 | Admission Physical ---
Datetime Report Generated by CPN: 07/31/2016 15:36 CURRENT ADMISSION Chief Complaint: Scheduled Induction of Labor Indication for Induction: Maternal Diabetes Admit Plan: Initiate Labor Induction Protocol ALLERGIES Medication Allergies: No Medication Allergies: No Known Allergies (07/30/2016) Latex: No Latex Allergies OBSTETRICAL HISTORY EDC: 08/06/2016 00:00 : 4 Para: 3 Term: 2 : 1 SAB: 0 IAB: 0 Ectopic: 0 Livin Cesareans: 0 VBACs: 0 Multiple Births: 0 Gestational Diabetes: Yes Rh Sensitization: No Incompetent Cervix: No VIVIAN: No Infertility: No ART Treatment: No Uterine Anomaly: No IUGR: No Hx Previous C/S: No Macrosomia: Yes Hx Loss/Stillborn: No PIH: Yes Hx : No Placenta Previa/Abruption: No Depression/PP Depression: No PTL/PROM: Yes Post Hemorrhage: No Current Procedures: Ultrasound; NST Obstetrical History Comments: G1-05/2004 @ 34 wks female 6lbs 11oz, pre-e G2-10/2008 @ 41 wks female 10lbs 4 oz G3-10/2011 @ 40wks male 9lbs 6oz G4-Current, GDM SEE RECORDS Alcohol: No Marijuana : No Cocaine: No Other Illicit Drugs: No Cigarettes: Never Smoker. 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; Childbirth hx pre-e first , gdm this bartholin cyst surgery 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 surgery INFECTIOUS HISTORY Gonorrhea: No Genital Herpes: No Chlamydia: No Tuberculosis: No Syphilis: No Hepatitis: No HIV/AIDS Exposure: No Rash or Viral Illness: No HPV: No PHYSICAL EXAM General: Normal HEENT: Normal Neurologic: Normal Thyroid: Normal Heart: Normal Lungs: Normal Breast: Normal Back: Normal Abdomen: Normal Genitourinary Exam: Normal Extremities: Normal DTRs: Normal Pelvic Type: Adequate Vital Signs: Reviewed VAGINAL EXAM Dilatation: 2 Effacement: 25 Station: -2 MEMBRANES Pooling: Negative Membranes: Ruptured FETUS A EGA: 39.0 Monitoring: External US FHR- Baseline: 130 Variability: Moderate 6-25bpm Accelerations: 10X10 Decelerations: None FHR Category: Category I Estimated Weight (gm): 4000 Presentation: Vertex PLANS FOR LABOR AND DELIVERY Labor and Delivery: None Pain Management: None Feeding Preference: Breast Benefit of Breast Feed Discussed: Yes Circumcision: N/A INFORMED CONSENT Informed Consent Obtained: Vaginal Delivery; Risks, Benefits and Alternatives Discussed Signature: with User ID: [email or web address]
[2016-07-31] MEDS ORDERED: DIPH/PERTUSS(ACELL)/TETANUS VAC/PF 0.5 ML SYR (>=10YO) IM PRN (17:04)
[2016-07-31] MEDS ORDERED: BENZOCAINE/MENTHOL AEROSOL SPRAY 56 ML TOP PRN (17:04)
[2016-07-31] MEDS ORDERED: DIBUCAINE 1% OINTMENT 28 GM TP PRN (17:04)
[2016-07-31] MEDS ORDERED: ZOLPIDEM TARTRATE 5 MG TABLET PO PRN (17:04)
[2016-07-31] MEDS ORDERED: MEASLES,MUMPS&RUBELLA VACC/PF 0.5 ML VIAL SUBCUT PRN (17:04)
[2016-07-31] MEDS ORDERED: ACETAMINOPHEN WITH CODEINE #3 TABLET PO PRN ×2 (17:04)
--- NOTE | 2016-07-31 19:00 | L&D Flow Sheet ---
LD Flowsheet Datetime Report Generated by CPN: 07/31/2016 19:00 Datetime: 07/31/2016 14:58 NBP Sys/Flor/Mean (mmHg): 112 (QS system process) : 53 (QS system process) : 76 (QS system process) Pulse: 70 (QS system process) Datetime: 07/31/2016 14:56 NBP Sys/Flor/Mean (mmHg): 164 (QS system process) : 73 (QS system process) : 105 (QS system process) Pulse: 82 (QS system process) Datetime: 07/31/2016 14:15 NBP Sys/Flor/Mean (mmHg): 117 (QS system process) : 75 (QS system process) : 92 (QS system process) Pulse: 80 (QS system process) Datetime: 07/31/2016 14:04 Stage of : Recovery (Janey Bellavance, RNC) Datetime: 07/31/2016 13:38 NBP Sys/Flor/Mean (mmHg): 109 (QS system process) : 62 (QS system process) : 81 (QS system process) Pulse: 71 (QS system process) Datetime: 07/31/2016 13:35 Temperature (F): 98.7 (Gary Griffith RN) Temperature (C): 37.1 (QS system process) Pain Scale: 1 (Gary Griffith RN) Pain Presence: Constant (Gary Griffith RN) Pain Type: Aching (Gary Griffith RN) Pain Location: Perineum (Gary Griffith RN) Pain Goal: 0 (Gary Griffith RN) Datetime: 07/31/2016 13:17 NBP Sys/Flor/Mean (mmHg): 140 (QS system process) : 62 (QS system process) : 89 (QS system process) Pulse: 75 (QS system process) Datetime: 07/31/2016 13:15 Stage of : Recovery (Gayr Griffith RN) Datetime: 07/31/2016 12:51 IV/Blood Work: IV Infusing per Order (Gary Griffith RN) Patient Position/Activity: Standing (Gary Griffith RN) I/O Interventions: Ice Chips Given (Gary Griffith RN) Datetime: 07/31/2016 12:45 Dilatation (cm): 6.0 (Gary Griffith RN) Effacement (%): 75 (Gary Griffith RN) Station: -2 (Gary Griffith RN) Exam by: Katerina Field RN (Gary Griffith RN) Vaginal Bleeding: None (Gary Nacho, RN) Datetime: 07/31/2016 12:36 NBP Sys/Flor/Mean (mmHg): 143 (QS system process) : 67 (QS system process) : 96 (QS system process) Pulse: 73 (QS system process) LaborFlag: Labor (QS system process) Datetime: 07/31/2016 12:30 Monitor Mode: External (Janey Bellavance, RNC) Frequency (min): 2-4 (Janey Bellavance, RNC) Quality: Moderate (Janey Bellavance, RNC) Duration (sec): 50-70 (Janey Bellavance, RNC) Resting Tone (Palpate): Relaxed (Janey Bellavance, RNC) Monitor Mode: External US (Janey Bellavance, RNC) FHR Baseline Rate : 145 (Janey Bellavance, RNC) Variability: Moderate 6-25 bpm (Janey Bellavance, RNC) Accelerations: None (Janey Bellavance, RNC) Decelerations: Early; Late (Janey Bellavance, RNC) Pain Presence: Intermittent (Gary Nacho, RN) Pain Type: Contraction (Gary Griffith, RN) Pitocin (milliunit): Pitocin Remains (milliunits) @ 14 (Gary Griffith, RN) IV/Blood Work: IV Infusing per Order (VONDA Bowles) IV/Blood Work: IV Infusing per Order (Gary Griffith, RN) Patient Position/Activity: Right Tilt; Semi-Fowlers (Gary Griffith, RN) Patient Position/Activity: Semi-Fowlers (VONDA Bowles) Patient Position/Activity: Semi-Fowlers (Gary Griffith, RN) Comfort Measures: Breathing/Relaxation; Family Support (Gary Griffith, AMBER) LaborFlag: Labor (QS system process) Datetime: 07/31/2016 12:15 Monitor Mode: External (Janey Cummingse, RNC) Frequency (min): 1-3 (Janey Field, RNC) Quality: Moderate (Janey Field, RNC) Duration (sec): 50-70 (Janey Field, RNC) Resting Tone (Palpate): Relaxed (Janey Field, RNC) Monitor Mode: External US (VONDA Bowles) Monitor Mode: External US (Gary Griffith, AMBER) FHR Baseline Rate : 145 (Janey Field, RNC) FHR Baseline Rate : 150 (Gary Griffith, RN) Variability: Moderate 6-25 bpm (Janey Field RNC) Variability: Moderate 6-25 bpm (Gary Griffith, RN) Accelerations: 10X10 (Janey Bellavance, RNC) Decelerations: Variable (Janey Bellavance, RNC) Pitocin (milliunit): Pitocin Remains (milliunits) @ 14 (Janey Bellavance, RNC) IV/Blood Work: IV Infusing per Order (Janey Bellavance, RNC) Datetime: 07/31/2016 12:05 NBP Sys/Flor/Mean (mmHg): 123 (QS system process) : 83 (QS system process) : 92 (QS system process) Pulse: 106 (QS system process) LaborFlag: Labor (QS system process) Datetime: 07/31/2016 12:00 Monitor Mode: External (Janey Bellavance, RNC) Frequency (min): 2-3 (Janey Bellavance, RNC) Quality: Moderate (Janey Bellavance, RNC) Duration (sec): 50-100 (Janey Bellavance, RNC) Resting Tone (Palpate): Relaxed (Janey Bellavance, RNC) Monitor Mode: External US (Janey Bellavance, RNC) FHR Baseline Rate : 140 (Janey Cummingse, RNC) FHR Baseline Rate : 140 (Gary Griffith, AMBER) Variability: Moderate 6-25 bpm (Janey Bellavance, RNC) Accelerations: None (Janey Bellavance, RNC) Decelerations: Early; Variable (Janey Bellavance, RNC) Pain Assessment Comments: requesting natural (Janey Field, RNC) Pitocin (milliunit): Pitocin Remains (milliunits) @ 14 (Gary Griffith, RN) IV/Blood Work: IV Infusing per Order (VONDA Bowles) IV/Blood Work: IV Infusing per Order (Gary Griffith, RN) Patient Position/Activity: High Fowlers (Janey Field, RNC) Patient Position/Activity: Birthing Ball (Gary Griffith, RN) LaborFlag: Labor (QS system process) Datetime: 07/31/2016 11:45 Monitor Mode: External (Janey Bellavance, RNC) Frequency (min): 1-6 (Janey Bellavance, RNC) Quality: Moderate (Janey Bellavance, RNC) Duration (sec): 50-400 (Janey Bellavance, RNC) Pattern: Normal: <= 5 Contractions in 10 Minutes (Janey Bellavance, RNC) Resting Tone (Palpate): Relaxed (Janey Bellavance, RNC) Monitor Mode: External US (Janey Bellavance, RNC) FHR Baseline Rate : 140 (Janey Bellnannce, RNC) Variability: Moderate 6-25 bpm (Janey Bellavance, RNC) Accelerations: 15X15 (Janey Bellavance, RNC) Decelerations: None (Janey Bellavance, RNC) Pain Presence: Intermittent (Janey Bellavance, RNC) Pain Type: Contraction (Janey Bellavance, RNC) Pain Location: Abdomen; Back (Janey Bellavance, RNC) Pain Relief Measures: Comfort Measures (Janey Bellavance, RNC) Pitocin (milliunit): Pitocin Increased to (milliunits) @ 14 (Gary Griffith, RN) IV/Blood Work: IV Infusing per Order (Janey Bellavance, RNC) Patient Position/Activity: Birthing Ball (Janey Bellavance, RNC) Comfort Measures: Breathing/Relaxation (Janey Bellavance, RNC) LaborFlag: Labor (QS system process) Datetime: 07/31/2016 11:32 NBP Sys/Flor/Mean (mmHg): 84 (QS system process) : 35 (QS system process) : 51 (QS system process) Pulse: 110 (QS system process) LaborFlag: Labor (QS system process) Datetime: 07/31/2016 11:29 Monitor Mode: External (Gary Nacho, RN) Monitor Mode: External US (Gary Nacho, RN) FHR Baseline Rate : 140 (Gary Nacho, RN) Variability: Moderate 6-25 bpm (Gary Nacho, RN) Accelerations: 15X15 (Gary Nacho, RN) Decelerations: None (Gary Nacho, RN) Pitocin (milliunit): Pitocin Increased to (milliunits) @ 12 (Gary Nacho, RN) Datetime: 07/31/2016 11:27 Temperature (F): 97.7 (Gary Nacho, RN) Temperature (C): 36.5 (QS system process) Monitor Mode: External (Janey Bellavance, RNC) Frequency (min): 1-6 (Janey Bellavance, RNC) Quality: Moderate (Janey Bellavance, RNC) Duration (sec): 50-400 (Janey Bellavance, RNC) Pattern: Normal: <= 5 Contractions in 10 Minutes (Janey Bellavance, RNC) Resting Tone (Palpate): Relaxed (Janey Bellavance, RNC) Monitor Mode: External US (Janey Bellavance, RNC) FHR Baseline Rate : 140 (Janey Bellavance, RNC) Variability: Moderate 6-25 bpm (Janey Bellavance, RNC) Accelerations: 15X15 (Janey Bellavance, RNC) Decelerations: None (Janey Bellavance, RNC) Pain Presence: Intermittent (Gary Griffith RN) Pain Type: Contraction (Gary Griffith RN) Pain Location: Abdomen; Back (Gary Griffith RN) Pain Relief Measures: Comfort Measures (Gary Griffith RN) IV/Blood Work: IV Infusing per Order (Gary Griffith RN) IV/Blood Work: IV Infusing per Order (Janey Field, RNC) Patient Position/Activity: Birthing Ball (Gary Griffith RN) Comfort Measures: Breathing/Relaxation (Gary Griffith RN) LaborFlag: Labor (QS system process) Datetime: 07/31/2016 11:15 Monitor Mode: External (Janey Bellavance, RNC) Frequency (min): 1-3.5 (Janey Bellavance, RNC) Quality: Moderate (Janey Bellavance, RNC) Duration (sec): 50-90 (Janey Bellavance, RNC) Resting Tone (Palpate): Relaxed (Janey Bellavance, RNC) Monitor Mode: External US (Janey Bellavance, RNC) FHR Baseline Rate : 150 (Janey Bellavance, RNC) Variability: Moderate 6-25 bpm (Janey Bellavance, RNC) Accelerations: 15X15 (Janey Bellavance, RNC) Decelerations: None (Janey Bellavance, RNC) Pitocin (milliunit): Pitocin Increased to (milliunits) @ 10 (Janey Bellnannce, RNC) IV/Blood Work: IV Infusing per Order (Janey Bellavance, RNC) Datetime: 07/31/2016 11:06 Pain Scale: 5 (Janey Bellavance, RNC) Pain Presence: Intermittent (Janey Bellavance, RNC) Pain Type: Cramping; Contraction (Janey Bellavance, RNC) Pain Location: Abdomen; Back (Janey Bellavance, RNC) Pain Goal: 2 (Janey Bellavance, RNC) Pain Relief Measures: Comfort Measures (Janey Bellavance, RNC) Pain Coping: Breathing Through Contractions (Janey Bellavance, RNC) Pain Assessment Comments: patient declines interventions (Janey Bellavance, RNC) Comfort Measures: Breathing/Relaxation; Family Support (Janey Bellavance, RNC) LaborFlag: Labor (QS system process) Datetime: 07/31/2016 11:05 NBP Sys/Flor/Mean (mmHg): 81 (QS system process) : 35 (QS system process) : 50 (QS system process) Pulse: 111 (QS system process) LaborFlag: Labor (QS system process) Datetime: 07/31/2016 11:04 NBP Sys/Flor/Mean (mmHg): 78 (QS system process) : 30 (QS system process) : 44 (QS system process) Pulse: 110 (QS system process) LaborFlag: Labor (QS system process) Datetime: 07/31/2016 11:00 Monitor Mode: External (Janey Bellavance, RNC) Frequency (min): 1-3.5 (Janey Bellavance, RNC) Quality: Moderate (Janey Bellavance, RNC) Duration (sec): 50-90 (Janey Bellavance, RNC) Resting Tone (Palpate): Relaxed (Janey Bellavance, RNC) Monitor Mode: External US (Janey Bellavance, RNC) FHR Baseline Rate : 150 (Janey Bellavance, RNC) Variability: Moderate 6-25 bpm (Janey Bellavance, RNC) Accelerations: 15X15 (Janey Bellavance, RNC) Decelerations: None (Janey Bellavance, RNC) Pitocin (milliunit): Pitocin Increased to (milliunits) @ 10 (Gary Griffith RN) IV/Blood Work: IV Infusing per Order (Janey Field RNC) Datetime: 07/31/2016 10:56 Monitor Mode: External US (Gary Griffith RN) FHR Baseline Rate : 140 (Gary Griffith RN) Variability: Moderate 6-25 bpm (Gary Griffith RN) Accelerations: 15X15 (Gary Griffith RN) Decelerations: None (Gary Griffith RN) Pain Scale: 5 (Gary Griffith RN) Pain Presence: Intermittent (Gary Griffith RN) Pain Assessment Comments: PT states pain goes from lower abdomen around to back during contractions (Gary Griffith RN) Comfort Measures: Breathing/Relaxation; Family Support (Gary Griffith RN) LaborFlag: Labor (QS system process) Datetime: 07/31/2016 10:55 I/O Interventions: Up to BR (Gary Griffith RN) Datetime: 07/31/2016 10:45 Monitor Mode: External (Janey Bellavance, RNC) Frequency (min): 2-3 (Janey Bellavance, RNC) Quality: Moderate (Janey Bellavance, RNC) Duration (sec): 50-60 (Janey Bellavance, RNC) Resting Tone (Palpate): Relaxed (Janey Bellavance, RNC) Monitor Mode: External US (Janey Bellavance, RNC) Monitor Interventions for FHR: Ultrasound Adjusted (Janey Bellavance, RNC) FHR Baseline Rate : 140 (Janey Bellavance, RNC) Variability: Moderate 6-25 bpm (Janey Bellavance, RNC) Accelerations: 15X15 (Janey Bellavance, RNC) Decelerations: None (Janey Bellavance, RNC) Pain Coping: Breathing Through Contractions (Janey Bellavance, RNC) Pitocin (milliunit): Pitocin Increased to (milliunits) @ (Annotations: Pitocin increased to 8 ) (Gary Griffith RN) IV/Blood Work: IV Infusing per Order (Janey Bellavance, RNC) Comfort Measures: Family Support (Janey Bellavance, RNC) Datetime: 07/31/2016 10:39 NBP Sys/Flor/Mean (mmHg): 125 (QS system process) : 78 (QS system process) : 97 (QS system process) Pulse: 78 (QS system process) LaborFlag: Labor (QS system process) Datetime: 07/31/2016 10:30 Pitocin (milliunit): Pitocin Increased to (milliunits) @ (Annotations: Pitocin increased to 6 ) (Gary Griffith, AMBER) Datetime: 07/31/2016 10:26 Temperature (F): 99.6 (Gary Griffith, AMBER) Temperature (C): 37.6 (QS system process) LaborFlag: Labor (QS system process) Datetime: 07/31/2016 10:13 Monitor Mode: External (Gary Nacho, RN) Frequency (min): 3-5 (Gary Nacho, RN) Quality: Moderate (Gary Nacho, RN) Duration (sec): 50-70 (Gary Nacho, RN) Resting Tone (Palpate): Relaxed (Gary Nacho, RN) Monitor Mode: External US (Gary Nacho, RN) FHR Baseline Rate : 140 (Gary Nacho, RN) Variability: Moderate 6-25 bpm (Gary Nacho, RN) Accelerations: None (Gary Nacho, RN) Decelerations: None (Gary Nacho, RN) I/O Interventions: Up to BR (Gary Nacho, RN) Datetime: 07/31/2016 09:59 Monitor Mode: External (Gary Nacho, RN) Frequency (min): 3-5 (Gary Nacho, RN) Quality: Moderate (Gary Nacho, RN) Duration (sec): 50-70 (Gary Nacho, RN) Resting Tone (Palpate): Relaxed (Gary Nacho, RN) Monitor Mode: External US (Gary Nacho, RN) FHR Baseline Rate : 140 (Gary Nacho, RN) Variability: Moderate 6-25 bpm (Gary Nacho, RN) Accelerations: None (Gary Nacho, RN) Decelerations: None (Gary Nacho, RN) Datetime: 07/31/2016 09:58 NBP Sys/Flor/Mean (mmHg): 128 (QS system process) : 78 (QS system process) : 97 (QS system process) Pulse: 82 (QS system process) Respirations: 16 (Janey Bellavance, RNC) LaborFlag: Labor (QS system process) Datetime: 07/31/2016 09:44 Monitor Mode: External (Gary Griffith, RN) Frequency (min): 3-5+ (Gary Griffith, RN) Quality: Mild/Moderate (Gary Nacho, RN) Duration (sec): 50-70 (Gary Griffith, RN) Monitor Mode: External US (Gary Griffith, RN) FHR Baseline Rate : 135 (Gary Nacho, RN) Variability: Moderate 6-25 bpm (Gary Nacho, RN) Accelerations: None (Gary Nacho, RN) Decelerations: None (Gary Griffith RN) Comments: Strip difficult to assess (Gary Griffith RN) Pitocin (milliunit): Pitocin Increased to (milliunits) @ 4 (Gary Griffith RN) IV/Blood Work: IV Infusing per Order (Gary Griffith RN) Patient Position/Activity: Birthing Ball (Gary Griffith RN) Datetime: 07/31/2016 09:30 Bedside Blood Glucose: 142 H (QS system process) Monitor Mode: External (Gary Griffith RN) Frequency (min): 2-5 (Gary Griffith RN) Quality: Mild (Gary Griffith RN) Duration (sec): 100-110 (Gary Griffith RN) Resting Tone (Palpate): Relaxed (Gary Griffith RN) Monitor Mode: External US (Gary Griffith RN) FHR Baseline Rate : 135 (Gary Griffith RN) Variability: Moderate 6-25 bpm (Gary Griffith RN) Accelerations: None (Gary Griffith RN) Decelerations: None (Gary Griffith RN) Comments: Strip difficult to assess due to sporadic tracing (Gary Griffith RN) Pitocin (milliunit): Pitocin Started (milliunits) @ 2 (Gary Griffith RN) IV/Blood Work: IV Infusing per Order (Gary Griffith RN) LaborFlag: Labor (QS system process) Datetime: 07/31/2016 09:15 Frequency (min): 3-7 (Gary Nacho, RN) Monitor Mode: External US (Gary Nacho, RN) FHR Baseline Rate : 135 (Gary Nacho, RN) FHR Baseline Changes: No Baseline Change (Gary Nacho, RN) Variability: Moderate 6-25 bpm (Gary Nacho, RN) Accelerations: 15X15 (Gary Nacho, RN) Decelerations: None (Gary Nacho, RN) Datetime: 07/31/2016 09:00 Respirations: 16 (Gary Nacho, RN) Temperature (F): 98.1 (Gary Nacho, RN) Temperature (C): 36.7 (QS system process) Monitor Mode: External (Gary Nacho, RN) Frequency (min): 1.5-4 (Gary Nacho, RN) Quality: Mild (Gary Nacho, RN) Duration (sec): 80-270 (Gary Nacho, RN) Resting Tone (Palpate): Relaxed (Gary Nacho, RN) Monitor Mode: External US (Gary Nacho, RN) FHR Baseline Rate : 130 (Gary Nacho, RN) FHR Baseline Changes: No Baseline Change (Gary Nacho, RN) Variability: Moderate 6-25 bpm (Gary Nacho, RN) Accelerations: 15X15 (Gary Griffith RN) Decelerations: None (Gary Griffith RN) Dilatation (cm): 4.0 (Gary Griffith RN) Effacement (%): 25 (Gary Griffith RN) Station: -2 (Gary Griffith RN) Exam by: Gregory Hurtado CNM (Gary Griffith RN) Membrane Status: Ruptured (Gary Griffith RN) Membranes Ruptured Date/Time: 07/31/2016 09:00 (Gary Griffith RN) Membranes Rupture Method: Artificial (Gary Griffith RN) Amniotic Fluid Color: Clear (Gary Griffith RN) Amniotic Fluid Amount: Moderate (Gary Griffith RN) Amniotic Fluid Odor: Normal (Gary Griffith RN) Vaginal Bleeding: None (Gary Griffith RN) Level of Consciousness: Fully Conscious (Gary Griffith RN) Headache: Denies (Gary Griffith RN) Breath Sounds, Left: Clear and Equal (Gary Griffith RN) Breath Sounds, Right: Clear and Equal (Gary Griffith RN) Nausea/Vomiting: Denies (Gary Griffith RN) RUQ Epigastric Pain: Denies (Gary Griffith RN) IV/Blood Work: New IV Bag Hung (Gary Griffith RN) LaborFlag: Labor (QS system process) Datetime: 07/31/2016 08:31 Monitor Mode: External (aGry Griffith RN) Frequency (min): 6+ (Gary Griffith RN) Quality: Mild (Gary Griffith RN) Duration (sec): 90-240 (Gary Nacho, RN) Resting Tone (Palpate): Relaxed (Gary Griffith, RN) Monitor Mode: External US (Gary Griffith, RN) FHR Baseline Rate : 135 (Gary Griffith, RN) FHR Baseline Changes: No Baseline Change (Gary Griffith, RN) Variability: Moderate 6-25 bpm (Gary Griffith, RN) Accelerations: None (Gary Griffith, RN) Decelerations: None (Gary Griffith, RN) Pain Presence: None/Denies (Gary Griffith, RN) Pain Type: N/A (Gary Griffith, RN) IV/Blood Work: IV Infusing per Order (Gary Griffith, RN) LaborFlag: Labor (QS system process) Datetime: 07/31/2016 07:57 Monitor Mode: External (Gary Griffith, AMBER) Frequency (min): 3-4 (Gary Griffith RN) Quality: Mild (Gary Griffith, RN) Duration (sec): 70-90 (Gary Griffith, RN) Resting Tone (Palpate): Relaxed (Gary Griffith, RN) Monitor Mode: External US (Gary Griffith, RN) FHR Baseline Rate : 135 (Gary Griffith, RN) Variability: Moderate 6-25 bpm (Gary Griffith, RN) Accelerations: 15X15 (Gary Griffith, RN) Decelerations: None (Gary Griffith, RN) Pain Presence: None/Denies (Gary Griffith, RN) Pain Type: N/A (Gary Griffith, RN) IV/Blood Work: IV Infusing per Order (Gary Griffith, AMBER) LaborFlag: Labor (QS system process) Datetime: 07/31/2016 07:45 I/O Interventions: Up to BR (Gary Griffith RN) Datetime: 07/31/2016 07:29 Monitor Mode: External (Gary Griffith RN) Frequency (min): Irritable (Gary Griffith RN) Resting Tone (Palpate): Relaxed (Gary Griffith RN) Monitor Mode: External US (Gary Griffith RN) FHR Baseline Rate : 130 (Gary Griffith RN) FHR Baseline Changes: No Baseline Change (Gary Griffith RN) Variability: Moderate 6-25 bpm (Gary Griffith RN) Accelerations: 15X15 (Gary Griffith RN) Decelerations: Variable (Gary Griffith RN) Comments: Variable resolved spontaneously (Gary Griffith RN) Pain Presence: None/Denies (Gary Griffith RN) IV/Blood Work: IV Infusing per Order (Gary Griffith RN) Patient Position/Activity: Left Lateral; Left Tilt (Gary Griffith RN) Comfort Measures: Family Support (Gary Nacho, RN) LaborFlag: Labor (QS system process) Datetime: 07/31/2016 07:11 Communication: RN at Bedside (Annotations: Care was assumed from Shelly Vo RN. PT stable at this time and resting. Will continue to monitor. ) (Garyantony Griffith, RN) Datetime: 07/31/2016 07:10 Communication: Report Given to @ D Bellavance RNC (Shelly Mohanl, RN) Datetime: 07/31/2016 07:00 Monitor Mode: External (Shelly Gilda, RN) Frequency (min): irregular (Shelly Vo RN) Quality: Mild (Shelly Vo RN) Duration (sec): 60-80 (Shelly Vo RN) Resting Tone (Palpate): Relaxed (Shelly Vo RN) Monitor Mode: External US (Shelly Vo RN) FHR Baseline Rate : 135 (Shelly Vo RN) Variability: Moderate 6-25 bpm (Shelly Vo RN) Accelerations: 15X15 (Shelly Vo RN) Decelerations: None (Shelly Vo RN)
[2016-07-31] MEDS: FERROUS SULFATE 325 MG TABLET PO SCH (20:04)
[2016-07-31] MEDS: DOCUSATE SODIUM 100 MG CAPSULE PO SCH (20:04)
[2016-07-31] MEDS: IBUPROFEN 800 MG TABLET PO SCH (21:31)
[2016-08-01] MEDS: IBUPROFEN 800 MG TABLET PO SCH ×3 (05:31→21:13)
--- NOTE | 2016-08-01 06:00 | L&D Current Admission ---
Current Admit Datetime Report Generated by CPN: 08/01/2016 06:00 ADMISSION INFORMATION Current Admit Date/Time: 07/30/2016 22:00 (07/30/2016 21:57:Shelly Vo RN) Reason for Admission: Induction of Labor (07/30/2016 21:57:Shelly oV RN) Chief Complaint: Scheduled Induction of Labor (07/30/2016 22:00:Shelly Vo RN) Medications During : Vitamin (07/30/2016 21:57:Shelly Vo RN) EGA per Dates: 39.0 (07/30/2016 21:57:QS system process) Method of Arrival: Ambulatory (07/30/2016 21:57:Shelly Vo RN) Admitted From: Home (07/30/2016 21:57:Shelly Vo RN) Reason for Induction: Maternal Diabetes (07/30/2016 21:57:Shelly Vo RN) Reason for Induction- Other: gestational diabetes (07/30/2016 21:57:Shelly Vo RN) Records Available: Yes (07/30/2016 21:57:Shelly Vo RN) General Admission Information: Reviewed; Updated; Confirmed (07/30/2016 21:57:Shelly Vo RN) General Admission Reviewed By: Myrtle Vo RN (07/30/2016 21:57:Shelly Vo RN) BELONGINGS/ADVANCED DIRECTIVES Other Belongings: See [facility] belongings form (07/30/2016 21:57:Shelly Vo RN) Advance Direct for Healthcare: No, and Wants No Information (07/30/2016 21:57:Shelly Vo RN) Durable Power of [place]: No (07/30/2016 21:57:Shelly Vo RN) Living Will: No (07/30/2016 21:57:Shelly Vo RN) Organ Donor: No (07/30/2016 21:57:Shelly Vo RN) Pt Rights Information Given: Yes (07/30/2016 21:57:Shelly Vo RN) Pt Understands Pt Rights: Yes (07/30/2016 21:57:Shelly Vo RN) LEARNING ASSESSMENT Knowledge Level: Understands L_D Process (07/30/2016 21:57:Shelly Vo RN) Barriers to Learning: Emotional State; Pain (07/30/2016 21:57:Shelly Vo RN) Learning Readiness: Motivated (07/30/2016 21:57:Shelly Vo RN) Learns Best By: 1 to 1 Instruction (07/30/2016 21:57:Shelly Vo RN) Learning Needs: Labor and Delivery Process; Symptoms to Report; Treatment Plan; Medication; Diagnosis (07/30/2016 21:57:Shelly Vo RN) DOMESTIC VIOLANCE SCREENING Reason Unable to Complete Screen: No Opportunity to Talk Privately (07/30/2016 22:00:Shelly Vo RN) NUTRITIONAL/FUNCTIONAL SCREENING Problem with Appetite >5 Days: No (07/30/2016 21:57:Shelly Vo RN) Chew/Swallow Difficulties: No (07/30/2016 21:57:Shelly Vo RN) Inappropriate Wt Gain/Loss: No (07/30/2016 21:57:Shelly Vo RN) Presence Skin Breakdown/Ulcer: No (07/30/2016 21:57:Shelly Vo RN) Special Diet: No (07/30/2016 21:57:Shelly Vo RN) Pt Requests Gis Programmer Visit: No (07/30/2016 21:57:Shelly Vo RN) Hx of Any of the Following?: N/A (07/30/2016 21:57:Shelly Vo RN) New Diagnosis of: N/A (07/30/2016 21:57:Shelly Vo RN) Requires Assist w/Ambulation: No (07/30/2016 21:57:Shelly Vo RN) Uses Assist Device to Ambulate: No (07/30/2016 21:57:Shelly Vo RN) Pt Requires Help w/ADL's: No (07/30/2016 21:57:Shelly Vo RN)
--- NOTE | 2016-08-01 06:00 | L&D General Admission ---
General Admit Datetime Report Generated by CPN: 08/01/2016 06:00 INFORMATION Patient Age: 30 (02/26/2016 00:10:QS system process) EDC: 08/06/2016 00:00 (07/30/2016 21:16:Radha Adams RN) : 4 (07/30/2016 21:16:Radha Adams RN) Para: 3 (07/30/2016 21:16:Radha Adams RN) Term: 2 (07/30/2016 21:16:Radha Adams RN) : 1 (07/30/2016 21:16:Radha Adams RN) Spontaneous Abortions: 0 (07/30/2016 21:16:Radha Adams RN) Induced Abortions: 0 (07/30/2016 21:16:Radha Adams RN) Livin (07/30/2016 21:16:Radha Adams RN) Cesareans: 0 (07/30/2016 21:16:Radha Adams RN) VBACs: 0 (07/30/2016 21:16:Radha Adams RN) Ectopic: 0 (07/30/2016 21:16:Radha Adams RN) Multiple Births: 0 (07/30/2016 21:16:Radha Adams RN) Baby, Number in Womb: 1 (07/30/2016 21:16:Radha Adams RN) CARE Primary Rug Layer: [facility] (07/30/2016 21:16:Radha Adams RN) Month of 1st Visit: February (07/30/2016 21:16:Radha Adams RN) Adequate Care: Yes (07/30/2016 21:16:Radha Adams RN) Prepregnancy Weight (lb): 135 (07/30/2016 21:16:Radha Adams RN) Prepregnancy Weight (kg): 61.4 (07/30/2016 21:16:QS system process) Height (in): 63 (07/31/2016 17:10:QS system process) ALLERGIES Medication Allergy: No (07/30/2016 21:16:Radha Adams RN) Medication Allergies: No Known Allergies (07/30/2016) (07/30/2016 22:02:QS system process) Latex Allergy: No Latex Allergies (07/30/2016 21:16:Shelly Vo RN) COMMUNICATION Primary Language: Honduran (07/30/2016 21:16:Radha Adams RN) Medical Tx Preferred Language: Honduran (07/30/2016 21:16:Radah Adams RN) Communication Barrier(s): None (07/30/2016 21:16:Radha Adams RN) DEMOGRAPHICS Address: [address] [place] [id number] (02/26/2016 00:10:QS system process) Zipcode: [address] (02/26/2016 00:10:QS system process) Home (02/26/2016 00:10:QS system process) N: [phone] (02/26/2016 00:10:QS system process) Next of Kin Name: VICTORIANO LEON (02/26/2016 00:10:QS system process) Next of Kin (02/26/2016 00:10:QS system process) Next of Kin Relationship: SPO (07/30/2016 21:26:QS system process) Date of : 1985 (02/26/2016 00:10:QS system process) Marital Status: Single (02/26/2016 00:10:QS system process) Sex: Female (02/26/2016 00:10:QS system process) Occupation: Sales (07/30/2016 21:16:Shelly Vo RN) Race: (02/26/2016 00:10:QS system process) Ethnicity: Non- or (02/26/2016 00:10:QS system process) Anabaptism: None (02/26/2016 00:10:QS system process) Education: 17 (07/30/2016 21:16:Shelly Vo RN) FOB Involved: Yes (07/30/2016 21:16:Shelly Vo RN) Father of Baby Name: Victoriano Leon (07/30/2016 21:16:Shelly Vo RN) DRUG AND ALCOHOL USE Alcohol: No (07/30/2016 21:16:Shelly Vo RN) Cigarettes: Never Smoker. [id number] (07/30/2016 21:16:Shelly Vo RN) Marijuana: No (07/30/2016 21:16:Shelly Vo RN) Cocaine: No (07/30/2016 21:16:Shelly Vo RN) Other Illicit Drugs: No (07/30/2016 21:16:Shelly Vo RN) VACCINE HISTORY Influenza Vaccine: Yes (07/30/2016 21:16:Shelly Vo RN) Pneumococcal Vaccine: No (07/30/2016 21:16:Shelly Vo RN) Tetanus Vaccine: Yes (07/30/2016 21:16:Shelly Vo RN) Tdap Vaccine: Yes (07/30/2016 21:16:Shelly Vo RN) Hepatitis B Vaccine: Yes (07/30/2016 21:16:Shelly Vo RN) Requirements Analyst: [facility] (07/30/2016 21:16:Shelly Vo RN) Feeding Preference: Breast (07/30/2016 21:16:Shelly Vo RN) Benefit of Breast Feed Discussed: Yes (07/30/2016 21:16:Shelly Vo RN) Circumcision: N/A (07/30/2016 21:16:Shelly Vo RN) Classes Attended: No (07/30/2016 21:16:Shelly Vo RN) Tubal Ligation: No (07/30/2016 21:16:Shelly Vo RN) Tubal Authorization Signed: N/A (07/30/2016 21:16:Shelly Vo RN) Consent: N/A (07/30/2016 21:16:Shelly Vo RN) Consent Signed: N/A (07/30/2016 21:16:Shelly Vo RN) Pain Management Plans: None (07/30/2016 21:16:Shelly Vo RN) Plans for Labor and Delivery: None (07/30/2016 21:16:Shelly Vo RN) Support Person: Victoriano Leon (07/30/2016 21:16:Shelly Vo RN) Support Person Relationship: Mother (07/30/2016 21:16:Shelly Vo RN) Cultural/Spritual Practice: No (07/30/2016 21:16:Shelly Vo RN) Spir/Cult Dietary Needs: No (07/30/2016 21:16:Shelly Vo RN) LIVING SITUATION/DISCHARGE PLAN Living Arrangements: House (07/30/2016 21:16:Shelly Vo RN) Adequate Access to:: Electric; Heat; Refrigeration; Plumbing/Running water; Phone; Transportation (07/30/2016 21:16:Shelly Vo RN) WIC Program: No (07/30/2016 21:16:Shelly Vo RN) Discharge Loader Helper Sorting Yard Person: Victoriano Leon (07/30/2016 21:16:Shelly Vo RN) Person to Help after Discharge: Victoriano Leon (07/30/2016 21:16:Shelly Vo RN) Currently Using Commun Resources: No (07/30/2016 21:16:Shelly Vo RN) Outside Agency/Farm Equipment Service Technician: No (07/30/2016 21:16:Shelly Vo RN) Car Seat for Discharge: Yes (07/30/2016 21:16:Shelly Vo RN) Adoption Requested: No (07/30/2016 21:16:Shelly Vo RN) Pt Contact w/ Post : N/A (07/30/2016 21:16:Shelly Vo RN) LABS Blood Type: O Positive (07/30/2016 21:16:Radha Adams RN) Antibody Screen: Negative (07/30/2016 21:16:Radha Adams RN) Rho(G) this : Not Applicable (07/30/2016 21:16:Radha Adams RN) Hemoglobin: 10.4 L (07/30/2016 22:10:QS system process) Hematocrit: 31.0 L (07/30/2016 22:10:QS system process) MCV: 86 (07/30/2016 22:10:QS system process) Group Beta Strep: Negative (07/30/2016 21:16:Radha Adams RN) Gonorrhea: Negative (07/30/2016 21:16:Radha Adams RN) Chlamydia: Negative (07/30/2016 21:16:Radha Adams RN) RPR/VDRL: Nonreactive (07/30/2016 21:16:Radha Adams RN) HIV Results: Negative (07/30/2016 21:16:Radha Adams RN) Rubella: Immune (07/30/2016 21:16:Radha Adams RN) Varicella: Non Susceptible (07/30/2016 21:16:Radha Adams RN) OB/PREVIOUS HISTORY Previous Procedures: Ultrasound; NST (07/30/2016 21:16:Radha Adams RN) Current Procedures: Ultrasound; NST (07/30/2016 21:16:Radha Adams RN) History of Previous : No (07/30/2016 21:16:Radha Adams RN) History of Gestational Diabetes: Yes (07/30/2016 21:16:Radha Adams RN) History of PIH: Yes (07/30/2016 21:16:Radha Adams RN) History of Incompetent Cervix: No (07/30/2016 21:16:Radha Adams RN) History of Placenta Previa/Abrup: No (07/30/2016 21:16:Radha Adams RN) History of Macrosomia: Yes (07/30/2016 21:16:Radha Adams RN) History of IUGR: No (07/30/2016 21:16:Radha Adams RN) History of Hemorrhage: No (07/30/2016 21:16:Shelly Vo RN) History of Loss/Stillborn: No (07/30/2016 21:16:Radha Adams RN) History of : No (07/30/2016 21:16:Radha Adams RN) History of D (Rh) Sensitization: No (07/30/2016 21:16:Radha Adams RN) History Recurrent Loss/Stillborn: No (07/30/2016 21:16:Radha Adams RN) History Depression/PP Depression: No (07/30/2016 21:16:Shelly Vo RN) History of Uterine Anomaly/VIVIAN: No (07/30/2016 21:16:Radha Adams RN) History of Infertility: No (07/30/2016 21:16:Radha Adams RN) History of ART Treatment: No (07/30/2016 21:16:Shelly Vo RN) History of VIVIAN: No (07/30/2016 21:16:Radha Adams RN) Comments Obstetrical History: G1-05/2004 @ 34 wks female 6lbs 11oz, pre-e G2-10/2008 @ 41 wks female 10lbs 4 oz G3-10/2011 @ 40wks male 9lbs 6oz G4-Current, GDM (07/30/2016 21:16:Shelly Vo RN) MEDICAL HISTORY Med Hx Diabetes: Yes (07/30/2016 21:16:Radha Adams RN) Diabetes Type: Gestational Diabetes (07/30/2016 21:16:Radha Adams RN) Med Hx Hypertension: Yes (07/30/2016 21:16:Shelly Vo RN) Med Hx Heart Disease: No (07/30/2016 21:16:Radha Adams RN) Med Hx Autoimmune Disorder: No (07/30/2016 21:16:Radha Adams RN) Med Hx Kidney Disease/UTI: No (07/30/2016 21:16:Radha Adams RN) Med Hx Neurologic/Epilepsy: No (07/30/2016 21:16:Radha Adams RN) Med Hx Psychiatric Disorders: No (07/30/2016 21:16:Shelly Vo RN) Med Hx Hepatitis/Liver Disease: No (07/30/2016 21:16:Radha Adams RN) Med Hx Varicosities/Phlebitis: No (07/30/2016 21:16:Radha Adams RN) Med Hx Thyroid Dysfunction: Yes (07/30/2016 21:16:Radha Adams RN) Med Hx Trauma/Violence: No (07/30/2016 21:16:Shelly Vo RN) Med Hx Blood Transfusion: No (07/30/2016 21:16:Shelly Vo RN) Med Hx Pulmonary (Asthma,TB): No (07/30/2016 21:16:Shelly Vo RN) Med Hx Breast: No (07/30/2016 21:16:Shelly Vo RN) Med Hx SOLUTION DIRECTOR Surgery: Yes (07/30/2016 21:16:Shelly Vo RN) Med Hx Hospitalization/Surgery: Yes (07/30/2016 21:16:Radha Adams RN) Med Hx Anesthetic Complications: No (07/30/2016 21:16:Shelly Vo RN) Med Hx Abnormal Pap Smear: Yes (07/30/2016 21:16:Radha Adams RN) Other Medical Diseases: No (07/30/2016 21:16:Shelly Vo RN) Med Hx Significant Family Hx: No (07/30/2016 21:16:Shelly Vo RN) Details of Med/Surg Hx: 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; Childbirth hx pre-e first , gdm this bartholin cyst surgery 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 surgery (07/30/2016 21:16:Shelly Vo RN) INFECTIOUS HISTORY Inf Hx Gonorrhea: No (07/30/2016 21:16:Shelly Vo RN) Inf Hx Chlamydia: No (07/30/2016 21:16:Shelly Vo RN) Inf Hx Syphilis: No (07/30/2016 21:16:Shelly Vo RN) Inf Hx HIV/AIDS: No (07/30/2016 21:16:Shelly Vo RN) Inf Hx Human Papilloma Virus: No (07/30/2016 21:16:Shelly Vo RN) Inf Hx Pt/Partner Genital Herpes: No (07/30/2016 21:16:Shelly Vo RN) Inf Hx Tuberculosis/Exposure: No (07/30/2016 21:16:Shelly Vo RN) Inf Hx Hepatitis B,C: No (07/30/2016 21:16:Shelly Vo RN) Inf Hx Rash or Viral Illness: No (07/30/2016 21:16:Shelly Vo RN) GENETIC HISTORY Gen Hx Age >=35 at [place]: No (07/30/2016 21:16:Shelly Vo RN) Gen Hx Thalassemia: No (07/30/2016 21:16:Shelly Vo RN) Gen Hx Congenital Heart Defect: No (07/30/2016 21:16:Shelly Vo RN) Gen Hx Neural Tube Defect: No (07/30/2016 21:16:Shelyl Vo RN) Gen Hx Down's Syndrome: No (07/30/2016 21:16:Shelly Vo RN) Gen Hx Dez-Sachs: No (07/30/2016 21:16:Shelly Vo RN) Gen Hx Ewelina: No (07/30/2016 21:16:Shelly Vo RN) Gen Hx Familial Dysautonomia: No (07/30/2016 21:16:Shelly Vo RN) Gen Hx Sickle Cell Disease/Trait: No (07/30/2016 21:16:Shelly Vo RN) Gen Hx Hemophilia/Blood Disorder: No (07/30/2016 21:16:Shelly Vo RN) Gen Hx Muscular Dystrophy: No (07/30/2016 21:16:Shelly Vo RN) Gen Hx Cystic Fibrosis: No (07/30/2016 21:16:Shelly Vo RN) Gen Hx Huntingtons Chorea: No (07/30/2016 21:16:Shelly Vo RN) Gen Hx Mental Retardation/Autism: No (07/30/2016 21:16:Shelly Vo RN) Gen Hx Tested for Fragile X: No (07/30/2016 21:16:Shelly Vo RN) Gen Hx Other Inher/Chromosomal: No (07/30/2016 21:16:Shelly Vo RN) Gen Hx Maternal Metabolic DO: No (07/30/2016 21:16:Shelly Vo RN) Gen Hx Pt Father or FOB Defect: No (07/30/2016 21:16:Shelly Vo RN) Gen Hx Other Genetic History: No (07/30/2016 21:16:Shelly Vo RN) Gen Hx Drugs/Meds since LMP: Yes (07/30/2016 21:16:Shelly Vo RN) Gen Hx Medications: pnv (07/30/2016 21:16:Shelly Vo RN)
--- NOTE | 2016-08-01 06:15 | L&D Care Plan ---
LD CARE PLANS Datetime Report Generated by CPN: 08/01/2016 06:15 Datetime: 07/30/2016 21:55 Pain State: Risk For (Radha Adams RN) Related To: Labor and Delivery Process; Treatment and Procedures; Post (Radha Adams RN) Goal(s): Patients Pain will be Assessed and Managed; Patient will Verbalize Adequate Relief of Pain or the Ability to Beecher with Current Pain (Radha Adams RN) Interventions: Assess Pain Severity on Scale of 0 (None) to 5 (Severe); Assess Type, Location and Intensity of Pain Each Time Client Reports Discomfort and Notify Provider if Unusal Pain Develops; Encourage Proper Breathing and Relaxation Techniques; Offer Alternatives Such as Repositioning, Calm Environment, Massages, Diversional Activities, Ice Pack, Splinting, and Ambulation; Administer Analgesics as Ordered; Assist with Epidural Placement as Appropriate; Evaluate Therapeutic Effectiveness of Medication and Treatments (Radha Adams RN) Outcome: Patient will Report Absence or Relief of Pain Consistent with Established Pain Goal (Radha Adams RN) Status: Ongoing (Radha Adams RN) Outcome: Patient will have a Decrease in Signs and Symptoms of Discomfort (Radha Adams RN) Status: Ongoing (Radha Adams RN) Outcome: Pain will be Controlled During Procedures (Radha Adams RN) Status: Ongoing (Radha Adams RN) Anxiety State: Risk For (Radha Adams RN) Related To: Labor and Delivery Process; Significant Life Event (Radha Adams RN) Goal(s): Patient will have Decreased Anxiety and be able to Function at Acceptable Levels (Radha Adams RN) Interventions: Assess Verbal and Nonverbal Behavioral Indicators of Anxiety; Assist Patient to Identify and Verbalize Symptoms of Anxiety; Identify and Demonstrate Techniques to Control Anxiety; Assist Patient with Coping Mechanisms to Manage Anxiety; Provide Theraputic Touch for the Patient; Explain to Patient, Using a Calm Reassuring Approach and Nonmedical Terms, All Activities, Procedures, and Concerns; Instruct Patient and Family about Post Discharge Care, Limitations, Symptoms to Report and Resources Available (Radha Adams RN) Outcome: Patient will Identify, Verbalize and Demonstrate Techniques to Control Anxiety (Radha Adams RN) Status: Ongoing (Radha Adams RN) Outcome: Patient's Posture, Facial Expressions, Gestures and Activity Level will Reflect Decreased Anxiety (Radha Adams RN) Status: Ongoing (Radha Adams RN) Outcome: Patient will Verbalize a Sense of Control and/or Acceptance of the Situation (Radha Adams RN) Status: Ongoing (Radha Adams RN) Outcome: Patient will Identify and Utilize Support Person (Radha Adams RN) Status: Ongoing (Radha Adams RN) Knowledge Deficit State: Risk For (Radha Adams RN) Related To: Labor and Delivery Process; Treatment and Procedures; Impending Alterations in Family Dynamics (Radha Adams RN) Goal(s): Patient will Accurately Verbalize Understanding of Plan of Care and Treatment; Patient and Family will Accurately Verbalize Understanding of the Disease Process (Radha Adams RN) Interventions: Assess Motivation and Willingness of Patient/Family to Learn; Assess Preferred Learning Mode: One to One Instruction, Reading, Videos, Group Discussion or Demonstration; Assess Barriers to Learning: Pain, Emotional State, Language Barrier, Cognitive Impairment, Visual or Hearing Deficits; Assess Patient and Family Knowledge of Disease Process, Medications and Treatment; Discuss Therapy and/or Treatment Options, Describe Rationale Behind Management, Therapy and Treatment Recommendations; Instruct Patient and Family on Signs and Symptoms to Report; Instruct Patient and Family on Medication Effects and Side Effects; Provide Appropriate and Timely Education Using Multiple Techniques; Provide Patient and Family with Support Group Information and Resources; Give Clear and Thorough Explanations and Demonstrations (Radha Adams RN) Outcome: Patient and Family will Verbalize Understanding of Condition, Treatment and Signs and Symptoms to Report (Radha Adams RN) Status: Ongoing (Radha Adams RN) Outcome: Patient will Identify Perceived Learning Needs and Express Motivation to Learn (Radha Adams RN) Status: Ongoing (Radha Adams RN) Outcome: Patient will Verbalize Understanding of Desired Content, and/or Performs Desired Skill Prior to Discharge (Radha Adams RN) Status: Ongoing (Radha Adams RN) Infection State: Risk For (Radha Adams RN) Related To: Prolonged Labor or Induction; Invasive Procedures; Altered Tissue Integrity (Radha Adams RN) Goal(s): The Patient will be Free of Infection, Vital Signs Stable and Lab Work within Normal Parameters (Radha Adams RN) Interventions: Instruct and Reinforce Proper Handwashing, Hygiene, and Care Techniques to Patient and Family; Monitor Vital Signs; Monitor Patient for the Following Signs of Infection: Fever, Abdominal Tenderness, Unusual Discharge; Monitor Aminiotic Fluid, Urine and Lochia for Color and Odor; Observe Wounds, Incisions and Invasive Line Sites for Redness, Drainage and Edema; Assess IV Sites per Hospital Policy; Monitor Lab and Test Results and Notify Provider of Abnormal Findings; Assess Nutritional Status and Promote Good Nutrition (Radha Adams RN) Outcome: Patient will Remain Free of Infection (Radha Adams RN) Status: Ongoing (Radha Adams RN) Outcome: Infection will be Recognized Early to Allow for Prompt Treatment (Radha Adams RN) Status: Ongoing (Radha Adams RN) Outcome: Patient will have Vital Signs Within Expected Range (Radha Adams RN) Status: Ongoing (Radha Adams RN) Fluid Volume State: Risk For (Radha Adams RN) Related To: Prolonged Labor or Induction (Radha Adams RN) Goal(s): Patient will Achieve and Maintain a Balanced Fluid Volume Status; Hemodynamically Stable (Radha Adams RN) Interventions: Monitor Vital Signs; Auscultate Breath Sounds; Monitor Patient for Skin Turgor, Mucous Membranes, Dry Skin, Weakness, Headaches and Confusion; Provide Oral Fluids as Ordered; Initiate and Maintain Intravenous Fluids as Ordered; Monitor Intake and Output as Indicated Per Patient Status; Accurately Measure Blood Loss; Monitor Lab and Test Results as Obtained and Notify Provider of Abnormal Findings; Monitor Patient's Weight (Radha Adams RN) Outcome: Patient will have Clear Lung Sounds (Radha Adams RN) Status: Ongoing (Radha Adams RN) Outcome: Patient will have Vital Signs within Expected Range (Radha Adams RN) Status: Ongoing (Radha Adams RN) Outcome: Urine Output will be within Expected Range (Radha Adams RN) Status: Ongoing (Radha Adams RN) Outcome: Patient will have Minimal Generalized or Upper Extremity Edema (Radha Adams RN) Status: Ongoing (Radha Adams RN) Injury State: Risk For (Radha Adams RN) Related To: Labor and Delivery Process (Radha Adams RN) Goal(s): Patient will Remain Free from Injury (Radha Adams RN) Interventions: Monitoring as per Hospital Protocol; Assess Neurological Status; Perform Risk Assessment of Patients with Induction and ; Perform Fall Risk Assessment and Prevention per Hospital Protocol; Perform DVT Risk Assessment and Prophylaxis per Hospital Protocol; Ensure that Oxygen, Suction, and Resuscitation Medications and Equipment are Readily Available; Confirm Patient ID Prior to Procedure(s) and Medication Administration per Hospital Policy (Radha Adams RN) Outcome: Successful Fall Risk Prevention (Radha Adams RN) Status: Ongoing (Radha Adams RN) Outcome: Patient will Deliver Infant without Adverse Sequela (Radha Adams RN) Status: Ongoing (Radha Adams RN) Outcome: Patient's Neurological Status will Remain Stable (Radha Adams RN) Status: Ongoing (Radha Adams RN) Impaired Skin Integrity State: Risk For (Radha Adams RN) Related To: Vaginal Delivery; Altered Tissue Integrity; Invasive Procedures (Radha Adams RN) Goal(s): Patient will Maintain Optimal Skin Integrity, Free of Breakdown, Injury or Infection (Radha Adams RN) Interventions: Complete Screening for Pressure Ulcer Risk and Initiate Protocol per Hospital Policy; Monitor Site of Skin Impairment for Color Changes, Redness, Swelling, Warmth, Pain or Other Signs of Infection; Encourage and Assist with Position Changes; Monitor Patient's Mobility Status; Provide Adequate Nutrition and Fluids; Teach Patient Appropriate Hygienic Care; Teach Patient/Family Skin Care Management (Radha Adams RN) Outcome: Patient will not have Evidence of Injury Such as Skin Breakdown, Scrapes, Cuts, or Bruising (Radha Adams RN) Status: Ongoing (Radha Adams RN) Outcome: Patient will Report Any Altered Sensation or Pain at Site of Skin Impairment (Radha Adams RN) Status: Ongoing (Radha Adams RN) Outcome: Patients Incisions and Wounds will be without Signs or Symptoms of Infection (Radha Adams RN) Status: Ongoing (Radha Adams RN) Outcome: Patient will Demonstrate Understanding of Plan to Heal Skin and Prevent Reinjury and Verbalize Risk Factors (Radha Adams RN) Status: Ongoing (Radha Adams RN) Parenting Impaired State: Not Applicable (Radha Adams RN) Nutrition State: Risk For (Radha Adams RN) Related To: (Radha Adams RN) Goal(s): Patient will have an Intake of Nutrients Sufficient to Meet Metabolic Needs (Radha Adams RN) Interventions: Nutritional Screening and Assessment per Hospital Policy; Allow Patient to Plan and Order Diet when Possible; Educate Patient on the Importance of Maintaining an Adequate Caloric Intake (Radha Adams RN) Outcome: Patient will Receive Adequate Calories and Fluid Volume to Meet Metabolic Needs (Radha Adams RN) Status: Ongoing (Radha Adams RN) Outcome: Patient will Select Foods or Meals that Support Adequate Nutrition (Radha Adams RN) Status: Ongoing (Radha Adams RN) Grieving State: Not Applicable (Radha Adams RN) Additional Care Plan State: Actual (Radha Adams RN) Nursing Diagnosis or r/t: (Radha Adams RN) Goal(s): Patient will breastfeed at least 8 times in 24 hours. (Radha Adams RN) Interventions: Support patient/family in . (Radha Adams RN) Outcome Status: Ongoing (Radha Adams RN)
[2016-08-01 07:57] LABS: HEMATOCRIT 28.8 % (36.0-47.0); HEMOGLOBIN 9.6 g/dL (12.0-15.5); MEAN CORPUSCULAR HEMOGLOBIN 29.2 pg (27.0-33.4); MEAN CORPUSCULAR HGB CONC 33.5 g/dL (32.0-36.0); MEAN CORPUSCULAR VOLUME 87 fl (80-97); RED CELL DISTRIBUTION WIDTH 14.9 % (11.5-14.0); WHITE BLOOD COUNT 13.6 10^3/uL (4.0-10.5)
[2016-08-01] MEDS: DOCUSATE SODIUM 100 MG CAPSULE PO SCH ×2 (09:43→18:26)
[2016-08-01] MEDS: SENNOSIDES/DOCUSATE 8.6-50 MG 1 EACH TABLET PO SCH (09:44)
[2016-08-01] MEDS: PRENATAL VITAMIN W-O CA NO5/FE FUMARATE/FA CAPSULE PO SCH (09:44)
[2016-08-01] MEDS: FERROUS SULFATE 325 MG TABLET PO SCH ×2 (09:44→18:26)
--- NOTE | 2016-08-01 14:18 | PDOC PROGRESS REPORT ---
Subjective-OB Subjective: Post Delivery Day: 30 year old. Denies any needs at this time. Pt wants to go home today. She is doing well, no concerns. She reports light bleeding, regular diet and voiding well. Physical Exam (OB) Vital Signs: Temp Pulse Resp BP Pulse Ox 97.8 F 62 17 109/50 L 99 08/01/16 09:49 08/01/16 09:49 08/01/16 09:49 08/01/16 09:49 08/01/16 09:49 Intake & Output 07/31/16 08/01/16 08/02/16 06:59 06:59 06:59 Weight 73.4 kg - Lochia Lochia Amount: Scant < 10 ml Lochia Color: Rubra/Red - Abdomen Description: Tender, Soft Hernia Present: No Fundal Description: Firm, Midline Fundal Height: u/u - u/2 Objective-Diagnostic Laboratory: 08/01/16 07:27 08/01/16 07:27 WBC 13.6 H RBC 3.30 L Hgb 9.6 L Hct 28.8 L MCV 87 MCH 29.2 MCHC 33.5 RDW 14.9 H Plt Count 239 Assessment and Plan(PN) - Assessment and Plan (1) Vaginal delivery Is this a current diagnosis for this admission?: Yes - Time Spent with Patient Time with patient: Less than 15 minutes Medications reviewed and adjusted accordingly: Yes - Disposition Anticipated Discharge: Home Within: within 24 hours
--- NOTE | 2016-08-01 14:19 | PDOC DISCHARGE SUMMARY ---
Final Diagnosis Discharge Date: 08/01/16 - Final Diagnosis (1) Vaginal delivery Is this a current diagnosis for this admission?: Yes Discharge Data - Discharge Medication Home Medications: Pnv95/Iron Fum/Folic Acid [ Caplet] 1 tab PO DAILY 02/26/16 Ibuprofen [Motrin 800 mg Tablet] 800 mg PO Q8 #60 tablet 08/01/16 Reason(s) for Admission: Induction of Labor Procedures: NST Intrapartum Procedure(s): Spontaneous Vaginal Delivery - Diagnosis Test Laboratory: Temp Pulse Resp BP Pulse Ox 97.8 F 62 17 109/50 L 99 08/01/16 09:49 08/01/16 09:49 08/01/16 09:49 08/01/16 09:49 08/01/16 09:49 07/30/16 07/30/16 08/01/16 22:01 22:10 07:27 RBC 3.61 L 3.30 L Hgb 10.4 L 9.6 L Hct 31.0 L 28.8 L Urine Opiates Screen NEGATIVE - Discharge information/Instructions Discharge Activity: Balance Activity w/Rest, Pelvic Rest, Slowly Increase Activity Discharge Diet: Regular Disposition: HOME, SELF-CARE Follow up with: [facility] in: 4, Weeks
[2016-08-02] MEDS: IBUPROFEN 800 MG TABLET PO SCH (05:22)
[2016-08-02 08:46] VITALS: BP 123/80
--- NOTE | 2016-08-02 09:18 | PDOC PROGRESS REPORT ---
Subjective-OB Subjective: Post Delivery Day: 30 year old. Denies any needs at this time. Ready to go home. Physical Exam (OB) Vital Signs: Temp Pulse Resp BP Pulse Ox 98.2 F 64 14 123/80 99 08/02/16 08:43 08/02/16 08:43 08/02/16 08:43 08/02/16 08:43 08/02/16 08:43 - Lochia Lochia Amount: Scant < 10 ml Lochia Color: Rubra/Red - Abdomen Description: Soft, Round Hernia Present: No Bowel Sounds: Normoactive Flatus Presence: Present Stool: No Fundal Description: Firm, Midline Fundal Height: u/3 - u/4 Objective-Diagnostic Laboratory: 08/01/16 07:27 Assessment and Plan(PN) - Time Spent with Patient Medications reviewed and adjusted accordingly: Yes - Disposition Anticipated Discharge: Home
--- NOTE | 2016-08-02 09:26 | PDOC DISCHARGE SUMMARY ---
Final Diagnosis Discharge Date: 08/02/16 - Final Diagnosis (1) GDM (gestational diabetes mellitus) Is this a current diagnosis for this admission?: Yes (2) Is this a current diagnosis for this admission?: Yes (3) Vaginal delivery Is this a current diagnosis for this admission?: Yes Discharge Data - Discharge Medication Home Medications: Pnv95/Iron Fum/Folic Acid [ [place]] 1 tab PO DAILY 02/26/16 Ibuprofen [Motrin 800 mg Tablet] 800 mg PO Q8 #60 tablet 08/01/16 Ferrous Sulfate [Feosol 325 mg Tablet] 325 mg PO BID #60 tablet 08/02/16 Gestational Age: 39.1 wks Reason(s) for Admission: Induction of Labor, Gestional Diabetes Procedures: Ultrasound Intrapartum Procedure(s): Spontaneous Vaginal Delivery - [place] Data Baby 1 Female at 1 minute: 9 at 5 minutes: 9 Weight: 3.6 kg Home with Mother: Yes Complications: No - Diagnosis Test Laboratory: Temp Pulse Resp BP Pulse Ox 98.2 F 64 14 123/80 99 08/02/16 08:43 08/02/16 08:43 08/02/16 08:43 08/02/16 08:43 08/02/16 08:43 07/30/16 07/30/16 08/01/16 22:01 22:10 07:27 RBC 3.61 L 3.30 L Hgb 10.4 L 9.6 L Hct 31.0 L 28.8 L Urine Opiates Screen NEGATIVE - Discharge information/Instructions Discharge Activity: Activity As Tolerated, Balance Activity w/Rest, Pelvic Rest , Slowly Increase Activity, No tub bath Discharge Diet: Regular Disposition: HOME, SELF-CARE Follow up with: [facility] in: 4, Weeks
[2016-08-02] MEDS: DOCUSATE SODIUM 100 MG CAPSULE PO SCH (09:59)
[2016-08-02] MEDS: PRENATAL VITAMIN W-O CA NO5/FE FUMARATE/FA CAPSULE PO SCH (10:00)
[2016-08-02] MEDS: FERROUS SULFATE 325 MG TABLET PO SCH (10:00)
[2016-08-02] MEDS: SENNOSIDES/DOCUSATE 8.6-50 MG 1 EACH TABLET PO SCH (10:01)
--- NOTE | 2016-08-14 15:37 | Delivery Summary ---
Del Sum A-C Datetime Report Generated by CPN: 08/14/2016 15:37 ADMISSION DATA Chief Complaint: Scheduled Induction of Labor Indication for Induction: Maternal Diabetes Admission Impression: Term, Intrauterine DELIVERY PERSONNEL Delivery Doctor:: Andre Emmel, CNM Labor and Delivery Nurse:: Gary Griffith manager cardiology Nurse:: Janey Field, RNC Medical Transport Specialist/LOADING CHECKER: Ashley Robledo, ST MATERNAL INFORMATION Delivery Anesthesia: None Medications After Delivery: Pitocin Drip 20 Units/1000ml NSS Maternal Complications: None Provider Comments: pt with increased urge to push on hands and knees bed prepared delivery of viable female tactile stimulation elicits spontaneous cry cord clamped cut by FOB cord blood obtained perineum intact pt placed in lithotomy position for placental delivery placenta gan fashion uterus explored EBL 250 cc hemostasis achieved placenta to pathology LABOR SUMMARY EDC: 08/06/2016 00:00 No. Babies in Womb: 1 Attempted: No Labor Anesthesia: None LABOR INFORMATION Onset of Labor: 07/31/2016 09:00 Complete Dilatation: 07/31/2016 12:54 Cervical Ripening Agents: Cytotec @ Oxytocin: Induction Group B Beta Strep: Negative Antibiotics # of Doses: 0 Steroids Given: None Reason Steroids Not Administered: Not Applicable MEMBRANES Membranes Rupture Method: Artificial Rupture of Membranes: 07/31/2016 09:00 Length of Rupture (hr): 3.98 Amniotic Fluid Color: Clear Amniotic Fluid Amount: Moderate Amniotic Fluid Odor: Normal STAGES OF LABOR Stage 1 hr: 3 Stage 1 min: 54 Stage 2 hr: 0 Stage 2 min: 5 Stage 3 hr: 0 Stage 3 min: 6 Total Time in Labor hr: 4 Total Time in Labor min: 5 VAGINAL DELIVERY Episiotomy: None Laceration Extension: N/A Laceration Type: None Laceration Repair: Not Applicable Sponge Count Correct: N/A BABY A INFORMATION Infant Delivery Date/Time: 07/31/2016 12:59 Method of Delivery: Vaginal Born in Route : No : N/A Forceps: N/A Vacuum Extraction: N/A Shoulder Dystocia : No PRESENTATION/POSITION BABY A Presentation: Cephalic Cephalic Presentation: Vertex Vertex Position: Left Occipital Anterior Breech Presentation: N/A PLACENTA INFORMATION BABY A Placenta Delivery Time : 07/31/2016 13:05 Placenta Method of Delivery: Spontaneous Placenta Status: Delivered SCORES BABY A Heart Rate 1 min: >100 bpm Resp Effort 1 min: Good Cry Reflex Irritability 1 min: Cough or Sneeze or Pulls Away Muscle Tone 1 min: Active Motion Color 1 min: Body [place], Extremities Blue Resuscitation Effort 1 min: N/A SCORE 1 MIN: 9 Heart Rate 5 min: >100 bpm Resp Effort 5 min: Good Cry Reflex Irritability 5 min: Cough or Sneeze or Pulls Away Muscle Tone 5 min: Active Motion Color 5 min: Body [place], Extremities Blue SCORE 5 MIN: 9 INFORMATION BABY A Gestational Age at Delivery: 39.1 Gestational Status: Full Term- 39- 40.6 Weeks Outcome : Liveborn Infant Condition : Stable Sex: Female IDENTIFICATION BABY A Infant Verification Date/Time: 07/31/2016 13:30 ID Band Number: [id number] Mother's Name Verified: Yes Infant RN Verifying Infant: Gary Griffith, RN/Janey Emir, RN WEIGHT/LENGTH BABY A Infant Birthweight (gm): 3610 Weight (lb): 7 Infant Weight (oz): 15 Length (in): 20.00 Infant Length (cm): 50.80 CORD INFORMATION BABY A No. Cord Vessels: 3 Nuchal Cord : N/A Cord Blood Taken: Yes-For Eval (Mom's Blood Type - or O+) Infant Suction: None ASSESSMENT BABY A Complications: None Physical Findings at Delivery: Within Normal Limits Respirations: Appears Normal Skin to Skin: Yes Skin to Skin Time (min): 120 Center Sales And Service Associate/ALS Called : No Infant Care By: Janey Field RN Transferred To: Remains with Mother BABY B INFORMATION : N/A SIGNATURES Assignment: Carmen Rothman MD Signature: with User ID: [email or web address] : with User ID: [email or web address]
== END 2016-08-02 11:05 | disposition home or self-care (01) | DRG 775 ==
LOC: LR 21:24 → 2S 07-31 15:35
PROVIDERS: ADMIT Obstetrics & Gynecology; ATTEND Obstetrics & Gynecology
PROC: 4A0HXCZ Measurement of Products of Conception, Cardiac Rate, External Approach (ICD-10-PCS; 2016-07-30)
PROC: 3E033VJ Introduction of Other Hormone into Peripheral Vein, Percutaneous Approach (ICD-10-PCS; 2016-07-30)
PROC: 10E0XZZ Delivery of Products of Conception, External Approach (ICD-10-PCS; principal; 2016-07-31)
PROC: 3E0P7GC Introduction of Other Therapeutic Substance into Female Reproductive, Via Natural or Artificial Opening (ICD-10-PCS; 2016-07-31)
DX: O24.429 Gestational diabetes mellitus in childbirth, unspecified control (principal); O99.89 Other specified diseases and conditions complicating pregnancy, childbirth and the puerperium; N87.0 Mild cervical dysplasia; Z3A.39 39 weeks gestation of pregnancy; Z37.0 Single live birth
CPT/HCPCS: 36415; 80307; 81005; 82962; 85025; 85027; 86592; 86705; 86850; 86900; 86901; 88307; J2590; J3490